=== PATIENT | female | born 1940 | race Caucasian/White ===

== ENCOUNTER 2017-01-10 11:13 | Observation (INO) ==
[2017-01-10] MEDS ORDERED: methylPREDNISolone 125 MG/2 ML VIAL IVP ONE (11:33)
[2017-01-10] MEDS ORDERED: Ipratropium/Albuterol Neb 3 ML IH ONE (11:33)
--- NOTE | 2017-01-10 11:44 | Emergency Department Note ---
Disposition Clinical Impression: Acute exacerbation of chronic obstructive airways disease Chest pain Qualifiers: Chest pain type: unspecified Qualified Code(s): R07.9 - Chest pain, unspecified Disposition: Admitted As Inpatient Condition: Fair Time of Disposition: 13:17 SOB HPI - General Chief Complaint: ED Shortness of Breath/Dyspnea Stated Complaint: SOB/hypertension Time Seen by Provider: 01/10/17 11:22 Source: patient, family Limitations: no limitations Nursing Notes Reviewed: Yes Vital Signs Reviewed: Yes - History of Present Illness 76-year-old female with history of hypertension, hyperlipidemia, [id number] smoking, possible COPD, presents with shortness of breath and elevated blood pressure. She states that her blood pressure is been about 190 systolic at home for the last week or so intermittently. She has also had anginal type chest pain with shortness of breath and chest pressure substernal 4 out of 10 that she currently has a gets worse when she is exerting herself. She states she is taking a baby aspirin daily. She has not had an ischemic and valvular heart or stress test in the last several years. She denies any history of CAD. She also reports a productive cough with some yellow sputum but denies fevers or chills. She has not been seen for a month or 2 and she has previously been evaluated by [facility] for hypertension she has a Coreg and losartan/ HCTZ. She denies dysuria hematuria, weight loss weight changes, nausea, vomiting, diarrhea, constipation, dysuria, hematuria, abdominal pain, skin changes. Pt Subjective Complaint: shortness of breath, cough, chest pain Onset (ago): day(s) Severity: moderate Consistency/Duration: intermittent Worsens with: exertion, movement, coughing Known history of: COPD Associated symptoms: Reports: chest pain, wheezing. Denies: cough Treatment prior to arrival: oxygen - Related Data Allergies Allergy/AdvReac Type Severity Reaction Status Date / Time sulfamethoxazole Allergy See Verified 01/10/17 11:35 [From Bactrim] Comments trimethoprim [From Bactrim] Allergy See Verified 01/10/17 11:35 Comments All systems ED: reviewed and negative except as stated. Constitutional: Denies: fever, chills Cardiovascular: Reports: as per HPI, chest pain, dyspnea on exertion. Denies: palpitations, edema Respiratory: Reports: as per HPI, cough, dyspnea, wheezes, sputum production Gastrointestinal: Denies: abdominal pain, nausea, vomiting Genitourinary: Denies: urgency, dysuria Integumentary: Denies: rash Neurological: Denies: headache, weakness Psychiatric: Denies: anxiety, depression Past Medical History - Past Medical History Attestation: Yes The following information was validated with the patient. Source: patient Medical history: Reports: COPD, GERD, hyperlipidemia, hypertension, thyroid disease Psychiatric history: Reports: anxiety, depression - Social History Smoking Status: Current every day smoker Alcohol use: Reports: none Drug use: Reports: none Physical Exam Constitutional: Elderly female in no acute distress appears stated age. HEENT: NCAT, sclera anicteric, PERRLA bilaterally, normal external ears bilaterally, nasal septum nondeviated, average dentition, MMM Neck: normal inspection, neck is supple, trachea midline Resp: Diffuse bilateral expiratory wheezes with prolonged expiratory phase. CV: RRR, no m/g/r GI: normal inspection, Soft, NTND, BS present Back: normal inspection, no tenderness to palpation Neuro: A&O3, no gross motor or sensory deficits bilaterally MSK: normal inspection, bilateral UE and LE with normal ROM Skin: No rashes, skin warm, dry, intact - General Limitations: no limitations General appearance: alert, in no apparent distress Course Course Narrative: 76-year-old female with shortness of breath, she does have bilateral extremity wheezes, or pulse ox is good she is mildly hypertensive however this is not severe 160 systolic, we will chest pain workup,with duonebs and solumedrol, troponin, her EKG initially looks within normal limits. Plan to the patient for chest pain workup given her heart score of 4, and concerning story for anginal symptoms. - Reevaluation(s) Reevaluation #1: Patient has some improvement however even though her pulse ox is normal, her lungs still sound diffusely wheezy, her troponin was negative and her EKG is unremarkable except for for some mild ST depressions in her lateral leads, will admit to medicine service, Dr. Santiago accepting Time: 13:17 Vital Signs Temperature 98.0 F 01/10/17 11:20 Pulse Rate 64 01/10/17 11:20 Respiratory Rate 20 01/10/17 11:20 Blood Pressure 169/83 01/10/17 11:20 O2 Sat by Pulse Oximetry 97 01/10/17 11:20 Temperature 98.2 F 01/10/17 14:08 Pulse Rate 67 01/10/17 14:08 Respiratory Rate 17 01/10/17 14:08 Blood Pressure 176/68 01/10/17 14:08 O2 Sat by Pulse Oximetry 93 01/10/17 14:08 Oxygen Delivery Oxygen Delivery Room Air Shortness of Breath/Dyspnea - Differential Diagnosis Likely: acute exacerbation of chronic obstructive airways disease, congestive heart failure - Medical Records Medical records reviewed: Yes I reviewed the patient's medical records. - Lab Data Lab results reviewed: Yes I reviewed the patient's lab results. Result diagrams: 01/10/17 12:06 01/10/17 12:06 Lab Results 01/10/17 01/10/17 01/10/17 Range/Units 12:06 12:06 12:06 WBC 7.7 (4.3-11.1) K/mcL RBC 4.45 (3.82-4.97) M/mcL Hgb 13.1 (11.5-15.4) g/dL Hct 39.9 (35.3-44.9) % MCV 89.7 (83.0-100.0) fL MCH 29.4 (28.0-33.3) pg MCHC 32.8 (31.6-35.5) g/dL RDW 12.2 (11.5-14.5) % Plt Count 181 (140-400) K/mcL MPV 10.3 (9.4-12.4) fL Immature Gran % 0.5 (0-4) % Seg Neutrophils % 72.7 % Lymphocytes % 16.4 % Monocytes % 7.0 % Eosinophils % 3.1 % Basophils % 0.3 % Neutrophils # 5.6 (1.6-8.9) K/mcL Lymphocytes # 1.3 (0.6-4.6) K/mcL Monocytes # 0.5 (0.0-1.3) K/mcL Eosinophils # 0.2 (0.0-0.6) K/mcL Basophils # 0.0 (0.0-0.2) K/mcL Nucleated RBCs/100 WBC 0.3 H (0) /100 WBC PT (9.4-12.1) Seconds INR Sodium 139 (136-145) mEq/L Potassium 3.8 (3.5-4.5) mEq/L Chloride 106 (98-109) mEq/L Carbon Dioxide 24 (19-29) mEq/L BUN 12 (7-20) mg/dL Creatinine 0.90 (0.57-1.11) mg/dL Est GFR ( Amer) > 60 (> 60) Est GFR (Non-Af Amer) > 60 (> 60) BUN/Creatinine Ratio 13 (6-26) Glucose 105 H (70-99) mg/dL Calculated Osmolality 288 (280-300) Lactic Acid 1.0 (0.5-2.2) mmol/L Calcium 9.1 (8.6-10.8) mg/dL Troponin I (0-0.03) ng/mL B-Natriuretic Peptide (0-100) pg/mL 01/10/17 01/10/17 01/10/17 Range/Units 12:06 12:06 12:06 WBC (4.3-11.1) K/mcL RBC (3.82-4.97) M/mcL Hgb (11.5-15.4) g/dL Hct (35.3-44.9) % MCV (83.0-100.0) fL MCH (28.0-33.3) pg MCHC (31.6-35.5) g/dL RDW (11.5-14.5) % Plt Count (140-400) K/mcL MPV (9.4-12.4) fL Immature Gran % (0-4) % Seg Neutrophils % % Lymphocytes % % Monocytes % % Eosinophils % % Basophils % % Neutrophils # (1.6-8.9) K/mcL Lymphocytes # (0.6-4.6) K/mcL Monocytes # (0.0-1.3) K/mcL Eosinophils # (0.0-0.6) K/mcL Basophils # (0.0-0.2) K/mcL Nucleated RBCs/100 WBC (0) /100 WBC PT 12.6 H (9.4-12.1) Seconds INR 1.2 Sodium (136-145) mEq/L Potassium (3.5-4.5) mEq/L Chloride (98-109) mEq/L Carbon Dioxide (19-29) mEq/L BUN (7-20) mg/dL Creatinine (0.57-1.11) mg/dL Est GFR ( Amer) (> 60) Est GFR (Non-Af Amer) (> 60) BUN/Creatinine Ratio (6-26) Glucose (70-99) mg/dL Calculated Osmolality (280-300) Lactic Acid (0.5-2.2) mmol/L Calcium (8.6-10.8) mg/dL Troponin I 0.00 (0-0.03) ng/mL B-Natriuretic Peptide 64 (0-100) pg/mL - Radiology Data Radiology results reviewed: Yes I reviewed the patient's radiology results. Chest X-Ray 01/10/17 11:34 IMPRESSION: No acute cardiopulmonary process. D/ / 01/10/2017 11:54:26 Shakir Judd MD / bcarter Interpreting Provider: Shakir uJdd MD - EKG Data EKG attestation: Yes I reviewed and interpreted this EKG. EKG shows normal: Reports: sinus rhythm (64 bpm VA 162 QRS [address] segment elevations or depressions,) Rate: Reports: normal Rhythm: Reports: NSR [place]/QRS: Reports: RBBB (Incomplete) ST segment depression in: Reports: v4, v5, v6 When compared to previous EKG there are: changes noted Interpretation: Reports: nonspecific ST-T wave changes (2009 compared with) - Core Measures AMI Core Measures Followed: Yes Attestation Statement - Attestation Attestation: I personally interviewed and examined this patient and my medical decision- making was reviewed with the ED Resident Physician, Dr. Steen I agree with the documented findings, disposition and treatment plan as described except to the extent set forth below. Patient is a 76-year-old female with history of hypertension hyperlipidemia and COPD who presents to the emergency room today with complaints of shortness of breath as well as chest pressure. Symptoms going on for the last few days intermittently and seem worse with exertion. Patient with no prior cardiac history and no recent cardiac evaluation. I agree with patient's physical exam findings as documented. Patient with subtle EKG findings T-wave flattening mild ST depression but not to the extent of 1 mm. This was compared to prior EKGs. Patient's workup up to this point is unremarkable and her blood pressure has been in the 140s systolic following breathing treatments. We will admit the patient for further evaluation of exertional dyspnea and chest pain. Case was discussed with the hospitalist and agreed to accept the patient for further evaluation and management. Patient remains hemodynamically stable at this time in the ED with no signs of respiratory distress.
[2017-01-10] MEDS ORDERED: Aspirin 81 MG TAB.CHEW PO ONE (11:45)
[2017-01-10 12:14] LABS: Basophils % 0.3 %; Eosinophils # 0.2 K/mcL (0.0-0.6); Eosinophils % 3.1 %; Hematocrit 39.9 % (35.3-44.9); Hemoglobin 13.1 g/dL (11.5-15.4); Immature Granulocytes % 0.5 % (0-4); Lymphocytes # 1.3 K/mcL (0.6-4.6); Lymphocytes % 16.4 %; Mean Corpuscular HGB Conc 32.8 g/dL (31.6-35.5); Mean Corpuscular Hemoglobin 29.4 pg (28.0-33.3); Mean Corpuscular Volume 89.7 fL (83.0-100.0); Mean Platelet Volume 10.3 fL (9.4-12.4); Monocytes # 0.5 K/mcL (0.0-1.3); Neutrophils # 5.6 K/mcL (1.6-8.9); Nucleated Red Blood Cells 0.3 /100 WBC (0); Platelet Count 181 K/mcL (140-400); Red Blood Count 4.45 M/mcL (3.82-4.97); Red Cell Distribution Width 12.2 % (11.5-14.5); Segmented Neutrophils % 72.7 %
[2017-01-10 12:27] LABS: BUN/Creatinine Ratio 13 (6-26); Blood Urea Nitrogen 12 mg/dL (7-20); Calcium 9.1 mg/dL (8.6-10.8); Carbon Dioxide 24 mEq/L (19-29); Chloride 106 mEq/L (98-109); Glucose 105 mg/dL (70-99); Osmolality,Calculated 288 (280-300); Potassium 3.8 mEq/L (3.5-4.5); Sodium 139 mEq/L (136-145); eGFR For African Americans > 60 (> 60); eGFR For Non-African Americans > 60 (> 60)
[2017-01-10 12:36] LABS: INR 1.2; Prothrombin Time 12.6 Seconds (9.4-12.1)
[2017-01-10] MEDS ORDERED: *HR* HYDROcodone/Acet 5/325 mg TABLET PO PRN (14:31)
[2017-01-10] MEDS ORDERED: Naloxone 0.4 MG/ML INJ IVP PRN (14:31)
[2017-01-10] MEDS ORDERED: Ondansetron 4 MG/2 ML VIAL IVP PRN (14:31)
[2017-01-10] MEDS ORDERED: *HR* Morphine 2 MG/ML SYRINGE IVP PRN (14:31)
[2017-01-10] MEDS ORDERED: Acetaminophen 325 MG TABLET PO PRN (14:31)
--- NOTE | 2017-01-10 15:03 | Internal Med History&Physical ---
<Jose MartinmaryrealTon liang - Last Filed: 01/10/17 15:58> Date of Encounter: 01/10/17 Time of Encounter: 14:00 Assessment and Plan (1) Acute exacerbation of chronic obstructive airways disease Current visit: Yes Status: Acute Patient presents with acute shortness of breath/dyspnea with exertion. Patient has history of COPD and tobacco use. Patient denies use of home oxygen. Supplemental O2 with titration if SPO2 less than 92% and continuous SPO2 monitoring, DuoNeb every 4, IVP prednisone 40 mg daily for SOB. (2) Chest pressure Current visit: Yes Status: Acute Mrs. Molina presents from the ED with chief complaint shortness of breath/ dyspnea and chest pressure with exertion. Patient states this began Wednesday night and has progressively worsened until today. States chest pressure is nonradiating and this is new onset for her. Troponins to be trended 2. EV echocardiogram ordered. Continuous cardiac telemetry and supplemental O2 with continuous SPO2 monitoring. We will consider nuclear pharm stress test based on results of echocardiogram. Nitroglycerin PRN. Continue patient's carvedilol and aspirin therapy. (3) HTN (hypertension) Current visit: Yes Status: Acute Patient presents with history of hypertension with increase in systolic BP to the 190s since Wednesday. Patient monitors BP at home. Continue patient's losartan/HCTZ. Will consider adding Lopressor if patient continues to show signs of uncontrolled hypertension. Monitor patient vital signs. Qualifiers: Hypertension type: essential hypertension Qualified Code(s): I10 - Essential (primary) hypertension (4) GERD (gastroesophageal reflux disease) Current visit: Yes Status: Chronic Patient presents with history of chronic gastroesophageal reflux disease. Will hold patient's Nexium and add IV Protonix 40 mg daily. Qualifiers: Esophagitis presence: esophagitis presence not specified Qualified Code(s) : K21.9 - Gastro-esophageal reflux disease without esophagitis (5) HLD (hyperlipidemia) Current visit: Yes Status: Chronic She presents with history of chronic hyperlipidemia. Lipid panel ordered. Will continue patient's Zocor. Qualifiers: Hyperlipidemia type: pure hypercholesterolemia Qualified Code(s): E78.00 - Pure hypercholesterolemia, unspecified; E78.0 - Pure hypercholesterolemia (6) DVT prophylaxis Current visit: Yes Status: Acute Patient placed on DVT prophylaxis due to admission protocol and current risk factors. Heparin 5,000 units SQ Q12 ordered. Monitor patient for signs of bleeding. Internal Medicine - H&P: HPI Chief complaint: SOB/Chest pressure w/exertion Admitted From: Emergency Dept Plans for Post Hospital Care: Home History of present illness: Mrs. Molina is a 76 year old female who presents from the ED with chief complaint shortness of breath/dyspnea and chest pressure with exertion. Patient states this began Wednesday night and has progressively worsened until today. She also states her BP on Wednesday night was in the 190s and continued up until when she presented to the ED. Mrs. Molina also states she has developed a cough over the past 3 days with yellow sputum production and runny nose. She denies any history of cardiac issues or coronary artery disease. Patient has a history of COPD, GERD, HLD, HTN, and thyroid disease. Patient states she is a current smoker smoking approximately 1-5 cigarettes per day. She denies recent illness, fever, chills, nausea, vomiting, abdominal pain, generalized weakness, diarrhea, constipation, weight loss, headache, vision changes, lower extremity/ pedal edema. Patient denies use of home oxygen. Patient is at moderate risk based on current respiratory status as well as new onset of chest pressure with exertion and will be placed as observation with troponins trended 2, EV echocardiogram, continuous cardiac telemetry, supplemental oxygen with titration if SPO2 less than 92%, DuoNeb's every 4, prednisone IV 40 mg daily. Will consider nuclear pharm stress test based on results of echocardiogram. Patient to be monitored closely for continued chest pressure and respiratory status. Time spent with patient greater than 40 minutes. Past Med Surg Social Fam HX - Past Medical History Source: patient Medical history: COPD, GERD, hyperlipidemia, hypertension, thyroid disease Psychiatric history: anxiety, depression - Past Surgical History Surgical History: cataract (Bilateral), cholecystectomy, hip replacement ( Bilateral), hysterectomy (Total), thyroidectomy - Social History Smoking Status: Current every day smoker Packs per day: 1-5 cigarettes per day Smokeless Tobacco Status: No Alcohol use: none Drug use: none Current living situation: Home, With Family Activity Level: Independent ambulation Recent Out of Country Travel Within the Last 8 Weeks: No Exposure or Possible Exposure to Illness During Travel: No - Family History Father Race: Family Member Ethnicity: Non- Living Status: Age at : 76 Cause of : MA Hx Family Cardiac Disorders: Yes (MA) Mother Race: Family Member Ethnicity: Non- Living Status: Age at : 80 Cause of : Complications of DM Hx Family Endocrine Disorder: Yes (DM) Brother Race: Family Member Ethnicity: Non- Living Status: Age at : 63 Cause of : Lung cancer Hx Family Cancer: Yes (Lung) Sister Race: Family Member Ethnicity: Non- Living Status: Still Living Hx Family Endocrine Disorder: Yes (DM) Internal Medicine - H&P: Meds Aspirin Enteric Coated [Aspirin EC] 81 mg PO DAILY 01/10/17 [History] Calcium Carbonate/Vitamin D3 [Calcium 600 + Vit D Tablet] 1 each PO DAILY [History] Carvedilol 12.5 mg PO QAM 01/10/17 [History] Carvedilol [Coreg] 25 mg PO QPM 01/10/17 [History] Esomeprazole Magnesium [Nexium] 40 mg PO DAILY 01/10/17 [History] FLUoxetine HCl [PROzac] 20 mg PO DAILY 01/10/17 [History] Levothyroxine Sodium 100 mcg PO QAM 01/10/17 [History] Losartan/HCTZ [Hyzaar 50-12.5 Tablet] 1 each PO DAILY 01/10/17 [History] Simvastatin [Zocor] 20 mg PO HS 01/10/17 [History] Umeclidinium [place] [Incruse Ellipta] 62.5 mcg IH DAILY 01/10/17 [History] Allergies sulfamethoxazole [From Bactrim] Allergy (Verified 01/10/17 11:35) See Comments lower extremity swelling trimethoprim [From Bactrim] Allergy (Verified 01/10/17 11:35) See Comments lower extremity swelling All Systems PM: A 10-system review of systems was performed and is negative for pertinent findings except as documented above in the HPI. - Constitutional Constitutional: no chills, no fever(s), no night sweats - EENT Eyes: no change in vision, no discharge, no pain, no photophobia Ears: no ear discharge, no ear pain, no tinnitus Nose, mouth and throat: no dysphagia, no nasal discharge, no neck pain, no sore throat - Breasts Breasts: as per HPI - Cardiovascular Cardiovascular ROS IM: as per HPI, chest pain (Patient reports as pressure, not typical chest pain. Non-radiating.), dyspnea on exertion, no diaphoresis, no dyspnea, no lightheadedness, no palpitations, no syncope - Respiratory Respiratory: as per HPI, cough, dyspnea on exertion, change in phlegm color - Gastrointestinal Gastrointestinal: no abdominal pain, no diarrhea, no hematemesis, no hematochezia, no melena, no nausea, no vomiting - Genitourinary Genitourinary: no change in urinary stream, no dysuria, no flank pain, no hematuria Menstruation: as per HPI, post hysterectomy - Musculoskeletal Musculoskeletal ROS IM: no numbness, no tingling - Integumentary Integumentary IM: no rash, no unusual bruising - Neurological Neurological ROS: no confusion, no convulsions, no focal weakness, no numbness, no tingling, no tremor(s) - Psychiatric Psychiatric: as per HPI, anxiety (Regarding health care status) - Endocrine Endocrine IM: as per HPI - Hematologic/Lymphatic Hematologic/Lymphatic: no easy bruising - Allergic/Immunologic Allergic/Immunologic: as per HPI - Constitutional Vitals: Temp Pulse Resp BP Pulse Ox 98.2 F 67 17 176/68 93 01/10/17 14:08 01/10/17 14:08 01/10/17 14:08 01/10/17 14:08 01/10/17 14:08 General appearance: Present: cooperative, A&O X 3, pleasant, no acute distress, obese, answers questions appropriately - Head Head exam: Present: atraumatic, normocephalic - Eye Eye exam: Present: PERRL, conjuntiva pink, sclera anicteric Pupils: Present: PERRL - ENT ENT exam: Present: normal exam, normal external ear exam - Neck Neck exam general surgery: Present: supple, trachea midline. Absent: lymphadenopathy - Respiratory Respiratory exam: Present: CTAB, wheezes (Expiratory wheezes bilaterally in all lobes). Absent: accessory muscle use, rales, rhonchi - Cardiovascular Cardiovascular exam: Present: RRR, +S1, +S2. Absent: diastolic murmur, gallop, rubs, systolic murmur - GI/Abdominal GI/Abdominal exam: Present: normal bowel sounds, soft, no peritoneal signs. Absent: distended, tenderness - Rectal Rectal exam: Present: deferred - Additional comments: exam deferred. - Extremities Exam Extremities exam: Present: warm, radial pulses palpable and symetrical. Absent : calf tenderness, cyanotic, pedal edema - Back Exam Back exam: Present: normal inspection - Neurological Exam Neurological exam: Present: CN II-XII intact, oriented X3, no focal deficits. Absent: pronater drift, facial droop, speech deficit - Psychiatric Psychiatric exam: Present: normal affect, normal mood - Skin Skin exam: Present: dry, intact Internal Med - H&P Results - Labs CBC & Chem 7: 01/10/17 12:06 01/10/17 12:06 - EKG Data EKG shows normal: sinus rhythm - EKG Data Prior EKG available for review: yes When compared to previous EKG: there is no significant change EKG comments: 01/10/17 15:55 EKG dated 10/13/08 shows sinus rhythm with anterior T-wave changes that are nonspecific. EKG dated 01/10/17 shows sinus rhythm with incomplete right bundle branch block and minimal ST depression. - Diagnostic Studies Chest x-ray Additional comments: Impressions Chest X-Ray 01/10/17 11:34 IMPRESSION: No acute cardiopulmonary process. D/ / 01/10/2017 11:54:26 Shakir Judd MD / ramila Interpreting Provider: Shakir Judd MD <Sr Pamelaumarely - Last Filed: 01/10/17 17:27> Date of Encounter: 01/10/17 Time of Encounter: 14:30 Internal Medicine - H&P: HPI History of present illness: Ms. Molina is a 76 year old female All Systems PM: A 10-system review of systems was performed and is negative for pertinent findings except as documented above in the HPI. - Constitutional Vitals: Temp Pulse Resp BP Pulse Ox 98.2 F 67 16 176/68 92 01/10/17 14:08 01/10/17 14:08 01/10/17 15:22 01/10/17 15:22 01/10/17 15:22 Internal Med - H&P Results - Labs CBC & Chem 7: 01/10/17 12:06 01/10/17 12:06 - Attending Attestation I examined this patient and my medical decision-making was reviewed with the nurse practitioner. I agree with the documented history of present illness, review of systems, past medical, surgical social and family histories and examination findings, disposition and treatment plan as described above except to any changes set forth below. 76-year-old female patient with history of COPD presented to the ER with complaints of shortness of breath and chest pressure that has been ongoing intermittently since Wednesday. She describes central chest pressure and 4 out of 10 in severity that gets worse with exertion. She has been having some productive cough with yellow sputum without any fevers or chills. On examination, she has end expiratory wheezing with normal S1 and S2. No pedal edema. No chest wall tenderness. Precordial chest pain: Monitor with telemetry. Trend troponins. We will get 2- D echocardiogram. Considers cardiac stress test if abnormal echo. Acute COPD exacerbation: Patient appears to be in acute COPD exacerbation with wheezing. Will treat for COPD with steroids, bronchodilators and antibiotics. Essential hypertension: Uncontrolled. Patient's blood pressure was elevated on presentation. We will resume home medications and monitor blood pressure closely. Adjust antihypertensive regimen accordingly. GERD: Continue PPI. DVT prophylaxis
[2017-01-10] MEDS ORDERED: Nitroglycerin 0.4 MG TAB.SUBL SL PRN (15:15)
[2017-01-10] MEDS: Ipratropium/Albuterol Neb 3 ML IH SCH ×3 (15:22→23:21)
[2017-01-10] MEDS: *HR* Heparin 5,000 UNIT/ML VIAL SQ SCH (17:08)
[2017-01-10] MEDS: Levofloxacin 500 MG/100 ML 500 MG/100 ML BAG IVPB SCH (18:04)
[2017-01-11 00:37] LABS: Basophils % 0.1 %; Hematocrit 38.2 % (35.3-44.9); Hemoglobin 12.7 g/dL (11.5-15.4); Immature Granulocytes % 0.5 % (0-4); Immature Platelets 5.2 % (1.1-6.1); Lymphocytes # 0.9 K/mcL (0.6-4.6); Lymphocytes % 10.5 %; Mean Corpuscular HGB Conc 33.2 g/dL (31.6-35.5); Mean Corpuscular Hemoglobin 29.7 pg (28.0-33.3); Mean Corpuscular Volume 89.5 fL (83.0-100.0); Mean Platelet Volume 10.7 fL (9.4-12.4); Monocytes # 0.1 K/mcL (0.0-1.3); Monocytes % 0.6 %; Neutrophils # 7.3 K/mcL (1.6-8.9); Platelet Count 195 K/mcL (140-400); Red Blood Count 4.27 M/mcL (3.82-4.97); Red Cell Distribution Width 12.3 % (11.5-14.5); Segmented Neutrophils % 88.3 %
[2017-01-11 00:52] LABS: Calcium 8.9 mg/dL (8.6-10.8); Chol/HDL Ratio 2.8 (0-4.9); Potassium 3.8 mEq/L (3.5-4.5)
[2017-01-11] MEDS: Ipratropium/Albuterol Neb 3 ML IH SCH ×6 (03:58→23:09)
[2017-01-11] MEDS: *HR* Heparin 5,000 UNIT/ML VIAL SQ SCH ×2 (05:34→17:22)
[2017-01-11] MEDS: Pantoprazole 40 MG VIAL IVP SCH (07:35)
[2017-01-11] MEDS ORDERED: MethylPREDNISolone 40 MG/ML VIAL IVP SCH (09:00)
[2017-01-11] MEDS ORDERED: Perflutren Lipid Microsphere 1.3 ML in 0.9 % Sodium Chloride 8.7 ML IVP ONE (10:40)
[2017-01-11] MEDS: Losartan/HCTZ 50-12.5 TABLET PO SCH (13:28)
[2017-01-11] MEDS: Aspirin Enteric Coated 81 MG Tablet PO SCH (13:28)
[2017-01-11] MEDS: FLUoxetine 20 MG CAPSULE PO SCH (13:29)
--- NOTE | 2017-01-11 13:34 | Electrocardiograph Report ---
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
[2017-01-11] MEDS ORDERED: Ipratropium/Albuterol Neb 3 ML IH PRN (13:47)
--- NOTE | 2017-01-11 13:52 | Internal Med Progress Note ---
Date of Encounter: 01/11/17 Time of Encounter: 13:05 - Assessment and plan (1) Acute exacerbation of chronic obstructive airways disease Current Visit: Yes Status: Acute Assessment and plan: Respiratory status improved will continue IV steroids today and start Prednisone 40mg PO qd in am Bronchodilator support O2 supplementation as needed smoking cessation counseling provided. patient states she quit last wednesday and is not planning on smoking again. refused nicotine replacement therapy (2) Chest pressure Current Visit: Yes Status: Acute Assessment and plan: Resolved at this time Likely secondary to COPD exacerbation serial TNI negative and echo findings noted. Ruled out ACS continue home meds (BB, Aspirin, statin) (3) DVT prophylaxis Current Visit: Yes Status: Acute Assessment and plan: heparin sq (4) HLD (hyperlipidemia) Current Visit: Yes Status: Chronic Assessment and plan: continue statin Qualifiers: Hyperlipidemia type: pure hypercholesterolemia Qualified Code(s): E78.00 - Pure hypercholesterolemia, unspecified; E78.0 - Pure hypercholesterolemia (5) HTN (hypertension) Current Visit: Yes Status: Acute Assessment and plan: Noted to be hypertensive this morning will resume all home meds and closely monitor BP if remains hypertensive, will use Hydralazine 10mg IV q6h prn SBP>150 Qualifiers: Hypertension type: essential hypertension Qualified Code(s): I10 - Essential (primary) hypertension - Subjective Interval history: Patient seen and examined at bedside. Resting in chair and reports of feeling significantly better since yesterday. States she came to the hospital due to chest pressure with difficulty breathing, both of which have resolved at this time. Denies any headache, chest pain, sob at this time. Noted to be hypertensive because she has not received her home medications. reports of having her last cigarette on Wednesday and is ready to quit at this time. Serial TNI negative, echo findings report LVEF of 60-65% with normal LV chamber size and function, mild concentric LVH and mild LV diastolic dysfunction reported. Given resolution of chest pain and negative serial TNI, no further cardiac work up is necessary. Will observe overnight and monitor BP closely. If remains clinically stable, likely d/c in am. - Constitutional Vitals: Temp Pulse Resp BP Pulse Ox 97.6 F 73 17 179/89 100 01/11/17 11:35 01/11/17 11:35 01/11/17 11:35 01/11/17 11:35 01/11/17 11:35 General appearance: Present: cooperative, A&O X 3, pleasant, no acute distress, obese, answers questions appropriately - Head Head exam: Present: atraumatic, normocephalic - Eye Eye exam: Present: conjuntiva pink, sclera anicteric - Respiratory Respiratory exam: Present: wheezes (bilateral expiratory wheezing ). Absent: respiratory distress - Cardiovascular Cardiovascular exam: Present: RRR, +S1, +S2 - GI/Abdominal GI/Abdominal exam: Present: normal bowel sounds, soft. Absent: distended, tenderness - Extremities Exam Extremities exam: Present: warm, radial pulses palpable and symetrical. Absent : calf tenderness, cyanotic, pedal edema - Neurological Exam Neurological exam: Present: alert, oriented X3 - Psychiatric Psychiatric exam: Present: normal affect, normal mood Internal Medicine: Result - Labs CBC & Chem 7: 01/11/17 00:13 01/11/17 00:13 Labs: Short CBC 01/11/17 Range/Units 00:13 WBC 8.3 (4.3-11.1) K/mcL Hgb 12.7 (11.5-15.4) g/dL Hct 38.2 (35.3-44.9) % Plt Count 195 (140-400) K/mcL Neutrophils # 7.3 (1.6-8.9) K/mcL BMP 01/11/17 00:13 Sodium 137 Potassium 3.8 Chloride 104 Carbon Dioxide 24 BUN 18 Creatinine 1.12 H Glucose 192 H Calcium 8.9 Cardiac Enzymes 01/10/17 01/11/17 Range/Units 18:45 00:13 Troponin I 0.00 0.01 (0-0.03) ng/mL - ABG Interpretation ABG results: PT/INR, D-dimer PT 12.6 Seconds (9.4-12.1) H 01/10/17 12:06 Consult Discharge Plan - Plan Referrals: Ling Gomez [Other] - 01/20/17 1:30 pm
[2017-01-12] MEDS: Ipratropium/Albuterol Neb 3 ML IH SCH ×6 (03:56→23:18)
[2017-01-12] MEDS: *HR* Heparin 5,000 UNIT/ML VIAL SQ SCH ×2 (06:20→17:40)
[2017-01-12 08:00] LABS: BUN/Creatinine Ratio 22 (6-26); Blood Urea Nitrogen 24 mg/dL (7-20); Calcium 8.8 mg/dL (8.6-10.8); Carbon Dioxide 27 mEq/L (19-29); Chloride 106 mEq/L (98-109); Glucose 113 mg/dL (70-99); Magnesium 1.5 mg/dL (1.6-2.6); Osmolality,Calculated 295 (280-300); Phosphorous 3.7 mg/dL (2.3-4.7); Potassium 3.9 mEq/L (3.5-4.5); Sodium 140 mEq/L (136-145); eGFR For African Americans > 60 (> 60); eGFR For Non-African Americans 50 (> 60)
[2017-01-12] MEDS: Losartan/HCTZ 50-12.5 TABLET PO SCH (08:24)
[2017-01-12] MEDS: Pantoprazole 40 MG VIAL IVP SCH (08:24)
[2017-01-12] MEDS: Aspirin Enteric Coated 81 MG Tablet PO SCH (08:24)
[2017-01-12] MEDS: FLUoxetine 20 MG CAPSULE PO SCH (08:24)
[2017-01-12] MEDS: predniSONE 20 MG TABLET PO SCH (08:25)
[2017-01-12 09:04] LABS: Basophils % 0.1 %; Hemoglobin 12.4 g/dL (11.5-15.4); Immature Granulocytes % 0.6 % (0-4); Lymphocytes # 1.5 K/mcL (0.6-4.6); Lymphocytes % 8.8 %; Mean Corpuscular HGB Conc 32.6 g/dL (31.6-35.5); Mean Corpuscular Hemoglobin 29.5 pg (28.0-33.3); Mean Corpuscular Volume 90.3 fL (83.0-100.0); Mean Platelet Volume 10.7 fL (9.4-12.4); Monocytes # 0.9 K/mcL (0.0-1.3); Monocytes % 5.3 %; Platelet Count 189 K/mcL (140-400); Red Blood Count 4.21 M/mcL (3.82-4.97); Red Cell Distribution Width 12.4 % (11.5-14.5); Segmented Neutrophils % 85.2 %
[2017-01-12 09:16] LABS: Neutrophils # 14.1 K/mcL (1.6-8.9)
--- NOTE | 2017-01-12 15:26 | Internal Med Progress Note ---
Date of Encounter: 01/12/17 Time of Encounter: 15:24 - Assessment and plan (1) Acute exacerbation of chronic obstructive airways disease Current Visit: Yes Status: Acute Assessment and plan: Respiratory status improved continue oral Prednisone 40mg PO qd Bronchodilator support O2 supplementation as needed smoking cessation counseling provided. patient states she quit last wednesday and is not planning on smoking again. refused nicotine replacement therapy. no pnuemonia on darline CXR (2) HLD (hyperlipidemia) Current Visit: Yes Status: Chronic Assessment and plan: continue statin Qualifiers: Hyperlipidemia type: pure hypercholesterolemia Qualified Code(s): E78.00 - Pure hypercholesterolemia, unspecified; E78.0 - Pure hypercholesterolemia (3) HTN (hypertension) Current Visit: Yes Status: Acute Assessment and plan: monitor BP Hydralazine 10mg IV q6h prn SBP>150 Qualifiers: Hypertension type: essential hypertension Qualified Code(s): I10 - Essential (primary) hypertension - Subjective Interval history: Patient seen at the bedside, reports feeling much better, was getting breathing treatment by the bedside. Denies any chest pain, mild wheezing on exam. Steroid has been tapered to oral. - Constitutional Vitals: Temp Pulse Resp BP Pulse Ox 97.9 F 66 16 134/69 98 01/12/17 10:55 01/12/17 10:55 01/12/17 11:12 01/12/17 10:55 01/12/17 11:12 General appearance: Present: cooperative, A&O X 3, pleasant, no acute distress, obese, answers questions appropriately Exam: - Head Head exam: Present: atraumatic, normocephalic - Eye Eye exam: Present: conjuntiva pink, sclera anicteric - Respiratory Respiratory exam: Present: wheezes (bilateral expiratory wheezing ). Absent: respiratory distress - Cardiovascular Cardiovascular exam: Present: RRR, +S1, +S2 - GI/Abdominal GI/Abdominal exam: Present: normal bowel sounds, soft. Absent: distended, tenderness - Extremities Exam Extremities exam: Present: warm, radial pulses palpable and symetrical. Absent : calf tenderness, cyanotic, pedal edema - Neurological Exam Neurological exam: Present: alert, oriented X3 - Psychiatric Psychiatric exam: Present: normal affect, normal mood Internal Medicine: Result - Labs CBC & Chem 7: 01/12/17 07:36 01/12/17 07:36 Labs: Short CBC 01/12/17 Range/Units 07:36 WBC 16.5 H D (4.3-11.1) K/mcL Hgb 12.4 (11.5-15.4) g/dL Hct 38.0 (35.3-44.9) % Plt Count 189 (140-400) K/mcL Neutrophils # 14.1 H (1.6-8.9) K/mcL BMP 01/12/17 07:36 Sodium 140 Potassium 3.9 Chloride 106 Carbon Dioxide 27 BUN 24 H Creatinine 1.07 Glucose 113 H Calcium 8.8 - ABG Interpretation ABG results: PT/INR, D-dimer PT 12.6 Seconds (9.4-12.1) H 01/10/17 12:06 Consult Discharge Plan - Plan Referrals: Ling Gomez [Other] - 01/20/17 1:30 pm
[2017-01-12] MEDS: Levofloxacin 500 MG/100 ML 500 MG/100 ML BAG IVPB SCH (17:41)
[2017-01-13] MEDS: Ipratropium/Albuterol Neb 3 ML IH SCH ×3 (03:34→11:00)
[2017-01-13] MEDS: *HR* Heparin 5,000 UNIT/ML VIAL SQ SCH (05:28)
[2017-01-13] MEDS: Pantoprazole 40 MG VIAL IVP SCH (09:59)
[2017-01-13] MEDS: predniSONE 20 MG TABLET PO SCH (09:59)
[2017-01-13] MEDS: Losartan/HCTZ 50-12.5 TABLET PO SCH (09:59)
[2017-01-13] MEDS: Aspirin Enteric Coated 81 MG Tablet PO SCH (09:59)
[2017-01-13] MEDS: FLUoxetine 20 MG CAPSULE PO SCH (09:59)
[2017-01-13 11:25] VITALS: BP 125/69
--- NOTE | 2017-01-13 12:11 | Discharge Summary ---
Date of Encounter: 01/13/17 Time of Encounter: 12:09 - Discharge Diagnosis (1) Acute exacerbation of chronic obstructive airways disease Priority: Primary Status: Acute (2) HLD (hyperlipidemia) Priority: Secondary Status: Chronic Qualifiers: Hyperlipidemia type: pure hypercholesterolemia Qualified Code(s): E78.00 - Pure hypercholesterolemia, unspecified; E78.0 - Pure hypercholesterolemia (3) HTN (hypertension) Priority: Secondary Status: Acute Qualifiers: Hypertension type: essential hypertension Qualified Code(s): I10 - Essential (primary) hypertension - Discharge Medications Prescriptions: predniSONE [PredniSONE] See Taper PO DAILY #35 tablet Home Medications: Aspirin Enteric Coated [Aspirin EC] 81 mg PO DAILY 01/10/17 [History] Calcium Carbonate/Vitamin D3 [Calcium 600 + Vit D Tablet] 1 each PO DAILY [History] Carvedilol 12.5 mg PO QAM 01/10/17 [History] Carvedilol [Coreg] 25 mg PO QPM 01/10/17 [History] Esomeprazole Magnesium [Nexium] 40 mg PO DAILY 01/10/17 [History] FLUoxetine HCl [Prozac] 20 mg PO DAILY 01/10/17 [History] Levothyroxine Sodium 100 mcg PO QAM 01/10/17 [History] Losartan/HCTZ [Hyzaar 50-12.5 Tablet] 1 each PO DAILY 01/10/17 [History] Simvastatin [Zocor] 20 mg PO HS 01/10/17 [History] Umeclidinium [place] [Incruse Ellipta] 62.5 mcg IH DAILY 01/10/17 [History] predniSONE [PredniSONE] See Taper PO DAILY #35 tablet 01/13/17 [Rx] Allergies/Adverse Reactions: Allergies sulfamethoxazole [From Bactrim] Allergy (Verified 01/10/17 11:35) See Comments lower extremity swelling trimethoprim [From Bactrim] Allergy (Verified 01/10/17 11:35) See Comments lower extremity swelling Procedures/tests Complete & Pending: Procedures Performed prior 72 hours Category Date Time Status EV echocardiogram w enhance Stat Y 01/11/17 14:42 Completed Date of admission: 01/10/17 13:16 Primary care physician: Ling Gomez CNP Discharging clinician: Valentín Cloud Anticipated date of discharge: 01/13/17 - Patient Status Disposition: Home, Self-Care Condition: Fair Functional capacity at discharge: independent ambulation Overall status at discharge: patient is back to baseline - Discharge Instructions Instructions: Chronic Obstructive Pulmonary Disease (DC) Follow Up With: iLng Gomez [Other] - 01/20/17 1:30 pm - Diet and Activity Activity: resume usual activities as tolerated Diet: advance to your usual diet Interval History: Mrs. Molina is a 76 year old female who presents from the ED with chief complaint shortness of breath/dyspnea and chest pressure with exertion. Patient has a history of COPD, GERD, HLD, HTN, and thyroid disease. Patient states she is a current smoker smoking approximately 1-5 cigarettes per day. Patient has history of COPD and tobacco use. Patient denies use of home oxygen. balaji was admitted for acute exacrebation of COPD. was tretaed with IV steroids, IV antibiotics and breathing treatments she did better overnight with above treatment, did not qualify for o2 at dc. she is being dc in stable condition with tapering dose of oral steroids Hospital course: Ms. Molina is a 76 year old female - Time Spent with Patient Total time spent providing and/or coordinating discharge services: - Constitutional Vitals: Temp Pulse Resp BP Pulse Ox 97.9 F 65 17 125/69 96 01/13/17 11:22 01/13/17 11:22 01/13/17 11:22 01/13/17 11:22 01/13/17 11:22 General appearance: Present: cooperative, A&O X 3, pleasant, no acute distress, obese, answers questions appropriately Exam: - Head Head exam: Present: atraumatic, normocephalic - Eye Eye exam: Present: PERRL, conjuntiva pink, sclera anicteric Pupils: Present: PERRL - ENT ENT exam: Present: normal exam, normal external ear exam - Neck Neck exam general surgery: Present: supple, trachea midline. Absent: lymphadenopathy - Respiratory Respiratory exam: Present: b/ l clear Absent: accessory muscle use, rales, rhonchi - Cardiovascular Cardiovascular exam: Present: RRR, +S1, +S2. Absent: diastolic murmur, gallop, rubs, systolic murmur - GI/Abdominal GI/Abdominal exam: Present: normal bowel sounds, soft, no peritoneal signs. Absent: distended, tenderness - Extremities Exam Extremities exam: Present: warm, radial pulses palpable and symetrical. Absent : calf tenderness, cyanotic, pedal edema - Back Exam Back exam: Present: normal inspection - Neurological Exam Neurological exam: Present: CN II-XII intact, oriented X3, no focal deficits. Absent: pronater drift, facial droop, speech deficit - Psychiatric Psychiatric exam: Present: normal affect, normal mood - Skin Skin exam: Present: dry, intact
== END 2017-01-13 13:18 | disposition home or self-care (01) ==
LOC: EMEROO 11:13 → 3BNU 11:13 → SUATTDRO 13:16 → 3BNU 14:02
PROVIDERS: ADMIT Internal Medicine; ATTEND Internal Medicine

== ENCOUNTER 2017-02-17 09:48 | Observation (INO) ==
[2017-02-17] MEDS ORDERED: Ipratropium/Albuterol Neb 3 ML IH ONE (10:39)
[2017-02-17] MEDS ORDERED: methylPREDNISolone 125 MG/2 ML VIAL IVP ONE (10:39)
--- NOTE | 2017-02-17 10:46 | Emergency Department Note ---
Disposition Clinical Impression: COPD with exacerbation, Acute exacerbation of chronic obstructive airways disease, Chest pressure Chest pain Qualifiers: Chest pain type: unspecified Qualified Code(s): R07.9 - Chest pain, unspecified Disposition: Admitted As Inpatient Time of Disposition: 12:17 General Adult HPI - General Chief complaint: ED Shortness of Breath/Dyspnea Stated complaint: SOLOMON Time Seen by Provider: 02/17/17 10:05 Source: patient, family Mode of arrival: ambulatory Limitations: no limitations Nursing Notes Reviewed: Yes Vital Signs Reviewed: Yes - History of Present Illness HPI Narrative: Ms. Molina is a 76 yo female with PMHx of HLD, HTN, GERD, and COPD. She presents today with a 4 day history of gradually worsening SOB. She has used her at-home breathing treatments which have provided moderate relief. She also has a 2 day history of diarrhea which has resulted in some at home blood pressure measurements in the 90's systolic, which corrected with increasing her PO intake of fluids. Yesterday she was able to eat a meal which alleviated her shortness of breath. Today, she has had some diarrhea, but has been drinking fluids with no problem. She denies any nausea or vomitting. She has no abdominal discomfort other than diarrhea. She denies any headaches, dizziness, lightheadedness, or fever. She is having some chest pain and discomfort. She describes the pain as "pressure" and "burning," it is mild in quality, and radiates upwards to her neck. She has had this intermittently over the past 4 days. Patient's last breathing treatment was this morning. She did not feel any relief, so she called her doctor. She decided to come to the ED despite her PCP saying she would see her this afternoon. Pain Scale: 3 - Related Data Home Medications Medication Instructions Recorded Confirmed Aspirin Enteric Coated [Aspirin EC] 81 mg PO DAILY 01/10/17 02/17/17 Calcium Carbonate/Vitamin D3 1 each PO DAILY 01/10/17 02/17/17 [Calcium 600 + Vit D Tablet] Carvedilol [Coreg] 25 mg PO BID 01/10/17 02/17/17 Esomeprazole Magnesium [Nexium] 40 mg PO DAILY 01/10/17 02/17/17 FLUoxetine HCl [Prozac] 20 mg PO DAILY 01/10/17 02/17/17 Levothyroxine Sodium 100 mcg PO QAM 01/10/17 02/17/17 Losartan/HCTZ [Hyzaar 50-12.5 1 each PO DAILY 01/10/17 02/17/17 Tablet] Simvastatin [Zocor] 20 mg PO HS 01/10/17 02/17/17 Umeclidinium [place] [Incruse 62.5 mcg IH DAILY 01/10/17 02/17/17 Ellipta] Albuterol Sulfate [Ventolin Hfa] 2 puff IH Q4H PRN 02/17/17 02/17/17 Famotidine [Pepcid] 20 mg PO DAILY 02/17/17 02/17/17 Allergies Allergy/AdvReac Type Severity Reaction Status Date / Time sulfamethoxazole Allergy See Verified 02/17/17 11:42 [From Bactrim] Comments trimethoprim [From Bactrim] Allergy See Verified 02/17/17 11:42 Comments All systems ED: reviewed and negative except as stated. Constitutional: Denies: fever, weakness Cardiovascular: Reports: chest pain, dyspnea on exertion. Denies: palpitations , syncope Respiratory: Reports: cough, dyspnea, sputum production. Denies: hemoptysis Gastrointestinal: Reports: diarrhea. Denies: abdominal pain, nausea, vomiting Genitourinary: Reports: dysuria Musculoskeletal: Denies: joint swelling Neurological: Denies: headache, weakness, numbness, abnormal gait Endocrine: Denies: fatigue, heat or cold intolerance Past Medical History - Past Medical History Medical history: Reports: COPD, GERD, hyperlipidemia, hypertension, thyroid disease Surgical history: Reports: cataract (Bilateral), cholecystectomy, hip replacement (Bilateral), hysterectomy (Total), thyroidectomy Psychiatric history: Reports: anxiety, depression - Social History Smoking Status: Current some day smoker Smokeless Tobacco Status: No Alcohol use: Reports: none Drug use: Reports: none Physical Exam - General Limitations: no limitations General appearance: alert, in no apparent distress - Head Head exam: atraumatic, normocephalic - Eye Eye exam: Present: normal appearance, EOMI, conjunctival injection. Absent: scleral icterus - ENT ENT exam: normal exam, mucous membranes moist - Neck Neck exam: Present: normal inspection - Chest Chest inspection: Present: normal inspection. Absent: symmetric chest wall rise - Respiratory Respiratory exam: Present: wheezes. Absent: respiratory distress - Cardiovascular Cardiovascular exam: Present: normal heart sounds. Absent: rubs, gallop - Expanded Cardiovascular Exam Peripheral pulses: 0: radial (R), 2+: carotid (R) (No carotid upstroke), carotid (L) (No carotid upstroke), radial (L), dorsalis pedis (R), dorsalis pedis (L) - Abdominal Exam Abdominal exam: Present: soft, Non-Tender, normal bowel sounds. Absent: distention, guarding - Expanded Lower Extremity Exam Lower leg exam: Present: normal inspection. Absent: swelling - Neurological Exam Neurological exam: Present: oriented X3 Course Course Narrative: Pt is a 76 yo female with PMHx COPD, GERD, HTN, and HLD. Patient is being treated for COPD exacerbation. She was seen last week for shortness of breath. An echo was performed which showed no abnormal functioning. Patient's last stress test was at [facility] 5 years ago for which she said was normal. Patient is experiencing some pressure in her chest with radiation up her neck. Will give SL nitro and ASA in addtion to 2 breathing treatments. - Reevaluation(s) Reevaluation #1: Patient chest pain alleviated by SL nitroglycerin, although it made patient feel weak with a transient drop in blood pressure to 106/61. Patient was seen last week for shortness of breath. She has not been getting adequate relief with her controller and rescue medications. Will admit to medicine service for chest pain work up and rule out ACS. Vital Signs Temperature 98.1 F 02/17/17 09:55 Pulse Rate 72 02/17/17 09:55 Respiratory Rate 22 02/17/17 09:55 Blood Pressure 119/79 02/17/17 09:55 O2 Sat by Pulse Oximetry 100 02/17/17 09:55 Temperature 98.1 F 02/17/17 09:55 Pulse Rate 72 02/17/17 12:00 Respiratory Rate 18 02/17/17 12:00 Blood Pressure 142/80 02/17/17 12:00 O2 Sat by Pulse Oximetry 99 02/17/17 12:00 Oxygen Delivery Oxygen Delivery Room Air Medical Decision Making - [facility] Narrative Medical decision making narrative: Ms. Molina is a 76 yo female with PMHx COPD, GERD, HTN, and HLD with shortness of breath for 4 days to be admitted to medicine for ACS rule out/Chest pain/ COPD exacerbation. She was just admitted last week for a COPD exacerbation. Her ECG stable from last week, troponins are negative, and labs WNL. Patient received two breathing treatments in the ED which opened her airways. However, patient's chest pain relieved with nitroglycerin tablet. Bc her last stress testing was 5 years ago, she needs to be admitted for further ACS work up. - Medical Records Medical records reviewed: Yes I reviewed the patient's medical records. - Lab Data Lab results reviewed: Yes I reviewed the patient's lab results. Result diagrams: 02/17/17 10:54 02/17/17 10:54 Lab Results 02/17/17 02/17/17 02/17/17 Range/Units 10:54 10:54 10:54 WBC 8.0 (4.3-11.1) K/mcL RBC 4.65 (3.82-4.97) M/mcL Hgb 13.7 (11.5-15.4) g/dL Hct 42.1 (35.3-44.9) % MCV 90.5 (83.0-100.0) fL MCH 29.5 (28.0-33.3) pg MCHC 32.5 (31.6-35.5) g/dL RDW 12.7 (11.5-14.5) % Plt Count 175 (140-400) K/mcL MPV 10.2 (9.4-12.4) fL Immature Gran % 0.4 (0-4) % Seg Neutrophils % 75.1 % Lymphocytes % 13.1 % Monocytes % 9.3 % Eosinophils % 1.9 % Basophils % 0.2 % Neutrophils # 6.0 (1.6-8.9) K/mcL Lymphocytes # 1.1 (0.6-4.6) K/mcL Monocytes # 0.8 (0.0-1.3) K/mcL Eosinophils # 0.2 (0.0-0.6) K/mcL Basophils # 0.0 (0.0-0.2) K/mcL Sodium 140 (136-145) mEq/L Potassium 3.9 (3.5-4.5) mEq/L Chloride 106 (98-109) mEq/L Carbon Dioxide 26 (19-29) mEq/L BUN 18 (7-20) mg/dL Creatinine 1.01 (0.57-1.11) mg/dL Est GFR ( Amer) > 60 (> 60) Est GFR (Non-Af Amer) 53 L (> 60) BUN/Creatinine Ratio 18 (6-26) Glucose 104 H (70-99) mg/dL Calculated Osmolality 292 (280-300) Calcium 9.0 (8.6-10.8) mg/dL Troponin I 0.00 (0-0.03) ng/mL B-Natriuretic Peptide (0-100) pg/mL 02/17/17 Range/Units 10:54 WBC (4.3-11.1) K/mcL RBC (3.82-4.97) M/mcL Hgb (11.5-15.4) g/dL Hct (35.3-44.9) % MCV (83.0-100.0) fL MCH (28.0-33.3) pg MCHC (31.6-35.5) g/dL RDW (11.5-14.5) % Plt Count (140-400) K/mcL MPV (9.4-12.4) fL Immature Gran % (0-4) % Seg Neutrophils % % Lymphocytes % % Monocytes % % Eosinophils % % Basophils % % Neutrophils # (1.6-8.9) K/mcL Lymphocytes # (0.6-4.6) K/mcL Monocytes # (0.0-1.3) K/mcL Eosinophils # (0.0-0.6) K/mcL Basophils # (0.0-0.2) K/mcL Sodium (136-145) mEq/L Potassium (3.5-4.5) mEq/L Chloride (98-109) mEq/L Carbon Dioxide (19-29) mEq/L BUN (7-20) mg/dL Creatinine (0.57-1.11) mg/dL Est GFR ( Amer) (> 60) Est GFR (Non-Af Amer) (> 60) BUN/Creatinine Ratio (6-26) Glucose (70-99) mg/dL Calculated Osmolality (280-300) Calcium (8.6-10.8) mg/dL Troponin I (0-0.03) ng/mL B-Natriuretic Peptide 14 (0-100) pg/mL - Radiology Data Radiology results reviewed: Yes I reviewed the patient's radiology results. Chest X-Ray 02/17/17 10:39 IMPRESSION: 1. No acute cardiopulmonary disease. D/ / Keri Aaron MD / Keri Aaron MD Interpreting Provider: Keri Aaron MD - EKG Data EKG #1 EKG attestation: Yes I reviewed and interpreted this EKG. EKG results narrative: Patients EKG at 1006 02-17-17 unchanged from EKG on 01-10-2017. EKG shows rate of 72 BPM and and regular sinus rhythm, incomplete right bundle branch block. Attestation Statement - Attestation Attestation: I personally interviewed and examined this patient and my medical decision- making was reviewed with the Resident Physician, Dr. Sauer. I agree with the documented findings, disposition and treatment plan as described except to the extent set forth below. Patient is a 76-year-old white female with history of COPD, hypertension, hyperlipidemia, who presents to the emergency department with a four-day history of gradually worsening shortness of breath, wheezing, and chest tightness. Patient reports no fevers or chills, no preceding upper respiratory infection, no abdominal pain or back pain. Patient has been using her inhalers at home with no relief. Patient states the pain she has been experiencing she describes as a tightness or heaviness in her chest that radiates up into her left neck and jaw. Patient was given an aspirin in route. She also received nitroglycerin which seemed to make the pain better but caused her to be hypotensive and "feel bad". He should with coarse sounding cough at bedside with nonproductive and audible wheezing. I agree patient's physical exam findings as documented. Received aerosols and steroids on arrival was placed on teletypesetter monitor and continuous pulse ox as well as supplemental oxygen. Patient with improvement following aerosols. Patient still feeling mild vague chest tightness. EKG is unremarkable for any acute ischemic changes. Patient had lab evaluation and chest x-ray. Patient's labs including troponin were within normal limits and her chest x-ray was clear without infiltrates or consolidations. At this time we recommended admission for further evaluation of her mild COPD exacerbation as well as her chest pain. Patient has not had a chest pain evaluation in the past or any significant heart testing by stress test or heart catheterization. Patient agrees with this plan. Case was discussed with the hospitalist and except for admission for further evaluation and management. Patient remains hemodynamically stable in the emergency department and improved respiratory status following aerosols and steroids and remains on supplemental O2.
[2017-02-17] MEDS ORDERED: Aspirin 81 MG TAB.CHEW PO STA (10:52)
[2017-02-17] MEDS ORDERED: Nitroglycerin 0.4 MG TAB.SUBL SL PRN (10:54)
[2017-02-17 11:00] LABS: Basophils % 0.2 %; Eosinophils # 0.2 K/mcL (0.0-0.6); Eosinophils % 1.9 %; Hematocrit 42.1 % (35.3-44.9); Hemoglobin 13.7 g/dL (11.5-15.4); Immature Granulocytes % 0.4 % (0-4); Lymphocytes # 1.1 K/mcL (0.6-4.6); Lymphocytes % 13.1 %; Mean Corpuscular HGB Conc 32.5 g/dL (31.6-35.5); Mean Corpuscular Hemoglobin 29.5 pg (28.0-33.3); Mean Corpuscular Volume 90.5 fL (83.0-100.0); Mean Platelet Volume 10.2 fL (9.4-12.4); Monocytes # 0.8 K/mcL (0.0-1.3); Monocytes % 9.3 %; Platelet Count 175 K/mcL (140-400); Red Blood Count 4.65 M/mcL (3.82-4.97); Red Cell Distribution Width 12.7 % (11.5-14.5); Segmented Neutrophils % 75.1 %
[2017-02-17 11:12] LABS: BUN/Creatinine Ratio 18 (6-26); Blood Urea Nitrogen 18 mg/dL (7-20); Carbon Dioxide 26 mEq/L (19-29); Chloride 106 mEq/L (98-109); Glucose 104 mg/dL (70-99); Osmolality,Calculated 292 (280-300); Potassium 3.9 mEq/L (3.5-4.5); Sodium 140 mEq/L (136-145); eGFR For African Americans > 60 (> 60); eGFR For Non-African Americans 53 (> 60)
--- NOTE | 2017-02-17 12:02 | Event Note ---
Date of Encounter: 02/17/17 Time of Encounter: 12:01 1. Acute mild COPD exacerbation likely secondary to viral bronchitis Start prednisone 60 mg daily, continue duo nebs and oxygen as needed 2. Chest pain Aspirin, check a lipid panel Telemetry, follow troponins, schedule stress test in the morning 3. Tobacco, smoking cessation counseling, nicotine patch 4. Hypertension, stable, may use hydralazine as needed 5. Chronic kidney disease stage III, stable Omeprazole for GI prophylaxis and Lovenox for DVT prophylaxis. The patient will be admitted for observation. Full code. Time spent on this admission 40 minutes. H&P will be completed by MAXIM[facility] Dixon
[2017-02-17] MEDS ORDERED: Naloxone 0.4 MG/ML INJ IVP PRN (12:08)
[2017-02-17] MEDS ORDERED: Acetaminophen 325 MG TABLET PO PRN (12:08)
--- NOTE | 2017-02-17 12:23 | Internal Med History&Physical ---
<Dixon,Juana J - Last Filed: 02/17/17 12:19> Date of Encounter: 02/17/17 Time of Encounter: 12:19 Assessment and Plan (1) Acute exacerbation of chronic obstructive airways disease Current visit: Yes Status: Acute Presented with worsening SOB for four days prior to presentation. Recently admitted with the same symptoms and treated with ATB and steroids. Suspect mild exacerbation, afebrile no elevated WBC. Hold ATB. Prednisone started, will likely need longer taper with recurrent symptoms. Cont nebs 02 prn. (2) Chest pressure Current visit: Yes Status: Acute Started on morning of presentation. Symptoms improved in the ED. Took ASA prior to arrival and received in the ED. Initial troponin negative and EKG without acute st changes. Cycle troponin stress test. Consult cardiology if needed. Continue home ASA, BB, statin. (3) Loose stools Current visit: Yes Status: Acute Patient reports multiple loose stools for 2-3 days prior to presentation. Recently on ATB for COPD exacerbation. Afebrile, no elevated WBC, ABD exam benign. GI panel pending. (4) HTN (hypertension) Current visit: No Status: Acute Per hx. BP variable but controlled in the ED. Continue home BP meds. Monitor BP and titrate PRN. Qualifiers: Hypertension type: essential hypertension Qualified Code(s): I10 - Essential (primary) hypertension (5) Hypothyroid Current visit: Yes Status: Acute Per hx. Continue home synthroid Qualifiers: Hypothyroidism type: unspecified Qualified Code(s): E03.9 - Hypothyroidism , unspecified (6) DVT prophylaxis Current visit: No Status: Acute [facility] Internal Medicine - H&P: HPI Chief complaint: SOB, CHEST PAIN Admitted From: Home Plans for Post Hospital Care: Home History of present illness: Ms. Molina is a 76 year old female WITH PMH, HTN, COPD, and Hypothyroidism who presented to [facility] on 02-17-17 with c/o of shortness of breath and midsternal chest pain. Was placed in observation status for PCS r/o. Information obtained from chart review and report. Per patient she awoke this morning with shortness of breath and upper midsternal chest pain what was unrelieved with rest. Chest pain described as a pressure and radiated towards neck. Nothing made pain better or worse. Reports intermittent SOB for the past four day without cough. Also reports multiple episodes of loose stool for the past few days. SOB better on exam, denies chest pain. Past Med Surg Social Fam HX - Past Medical History Medical history: COPD, GERD, hyperlipidemia, hypertension, thyroid disease Psychiatric history: anxiety, depression - Past Surgical History Surgical History: cataract (Bilateral), cholecystectomy, hip replacement ( Bilateral), hysterectomy (Total), thyroidectomy - Social History Smoking Status: Current some day smoker Smokeless Tobacco Status: No Alcohol use: none Drug use: none - Family History Father Family Member Ethnicity: Non- Living Status: Hx Family Cardiac Disorders: Yes (IA) Mother Family Member Ethnicity: Non- Living Status: Hx Family Endocrine Disorder: Yes (DM) Brother Family Member Ethnicity: Non- Living Status: Hx Family Cancer: Yes (Lung) Sister Family Member Ethnicity: Non- Living Status: Still Living Hx Family Endocrine Disorder: Yes (DM) Internal Medicine - H&P: Meds Aspirin Enteric Coated [Aspirin EC] 81 mg PO DAILY 01/10/17 [History] Calcium Carbonate/Vitamin D3 [Calcium 600 + Vit D Tablet] 1 each PO DAILY [History] Carvedilol [Coreg] 25 mg PO BID 01/10/17 [History] Esomeprazole Magnesium [Nexium] 40 mg PO DAILY 01/10/17 [History] FLUoxetine HCl [Prozac] 20 mg PO DAILY 01/10/17 [History] Levothyroxine Sodium 100 mcg PO QAM 01/10/17 [History] Losartan/HCTZ [Hyzaar 50-12.5 Tablet] 1 each PO DAILY 01/10/17 [History] Simvastatin [Zocor] 20 mg PO HS 01/10/17 [History] Umeclidinium [place] [Incruse Ellipta] 62.5 mcg IH DAILY 01/10/17 [History] Albuterol Sulfate [Ventolin Hfa] 2 puff IH Q4H PRN 02/17/17 [History] Famotidine [Pepcid] 20 mg PO DAILY 02/17/17 [History] Allergies sulfamethoxazole [From Bactrim] Allergy (Verified 02/17/17 11:42) See Comments lower extremity swelling trimethoprim [From Bactrim] Allergy (Verified 02/17/17 11:42) See Comments lower extremity swelling All Systems PM: A 10-system review of systems was performed and is negative for pertinent findings except as documented above in the HPI. - Constitutional Constitutional: no chills, no fever(s), no night sweats - EENT Eyes: no change in vision, no discharge, no pain, no photophobia Ears: no ear discharge, no ear pain, no tinnitus Nose, mouth and throat: no dysphagia, no nasal discharge, no neck pain, no sore throat - Cardiovascular Cardiovascular ROS IM: chest pain, dyspnea, no diaphoresis, no lightheadedness, no palpitations, no syncope - Respiratory Respiratory: dyspnea on exertion, no cough, no dyspnea, no wheezing, no excessive phlegm production - Gastrointestinal Gastrointestinal: loose stools, no abdominal pain, no diarrhea, no hematemesis, no hematochezia, no melena, no nausea, no vomiting - Genitourinary Genitourinary: no change in urinary stream, no dysuria, no flank pain, no hematuria - Musculoskeletal Musculoskeletal ROS IM: no numbness, no tingling - Integumentary Integumentary IM: no rash, no unusual bruising - Neurological Neurological ROS: no confusion, no convulsions, no focal weakness, no numbness, no tingling, no tremor(s) - Hematologic/Lymphatic Hematologic/Lymphatic: no easy bruising - Constitutional Vitals: Temp Pulse Resp BP Pulse Ox 98.1 F 72 18 142/80 99 02/17/17 09:55 02/17/17 12:00 02/17/17 12:00 02/17/17 12:00 02/17/17 12:00 General appearance: Present: A&O X 3, no acute distress - Head Head exam: Present: atraumatic, normocephalic - Eye Eye exam: Present: PERRL, conjuntiva pink, sclera anicteric Pupils: Present: PERRL - Neck Neck exam general surgery: Present: supple, trachea midline. Absent: lymphadenopathy - Respiratory Respiratory exam: Present: CTAB, rhonchi. Absent: accessory muscle use, rales, wheezes - Cardiovascular Cardiovascular exam: Present: RRR, +S1, +S2. Absent: diastolic murmur, gallop, rubs, systolic murmur - GI/Abdominal GI/Abdominal exam: Present: normal bowel sounds, soft, no peritoneal signs. Absent: distended, tenderness - Extremities Exam Extremities exam: Present: warm, radial pulses palpable and symetrical. Absent : calf tenderness, cyanotic, pedal edema - Neurological Exam Neurological exam: Present: CN II-XII intact, oriented X3, no focal deficits. Absent: pronater drift, facial droop, speech deficit - Skin Skin exam: Present: dry, intact Internal Med - H&P Results - Labs CBC & Chem 7: 02/17/17 10:54 02/17/17 10:54 Labs: Short CBC 02/17/17 Range/Units 10:54 WBC 8.0 (4.3-11.1) K/mcL Hgb 13.7 (11.5-15.4) g/dL Hct 42.1 (35.3-44.9) % Plt Count 175 (140-400) K/mcL Neutrophils # 6.0 (1.6-8.9) K/mcL BMP 02/17/17 10:54 Sodium 140 Potassium 3.9 Chloride 106 Carbon Dioxide 26 BUN 18 Creatinine 1.01 Glucose 104 H Calcium 9.0 Cardiac Enzymes 02/17/17 Range/Units 10:54 Troponin I 0.00 (0-0.03) ng/mL - EKG Data -: EKG Interpreted by Myself EKG shows normal: sinus rhythm Rate: normal - EKG Data Prior EKG available for review: yes When compared to previous EKG: there is no significant change EKG comments: 02/17/17 12:[address] changes. - Impressions ITS Impressions Chest X-Ray 02/17/17 10:39 IMPRESSION: 1. No acute cardiopulmonary disease. D/ / Keri Aaron MD / Keri Aaron MD Interpreting Provider: Keri Aaron MD <Mohan Henley H - Last Filed: 02/17/17 12:42> Date of Encounter: 02/17/17 Internal Medicine - H&P: HPI History of present illness: Ms. Molina is a 76 year old female All Systems PM: A 10-system review of systems was performed and is negative for pertinent findings except as documented above in the HPI. - Constitutional Vitals: Temp Pulse Resp BP Pulse Ox 98.1 F 72 16 132/84 99 02/17/17 09:55 02/17/17 12:00 02/17/17 12:32 02/17/17 12:32 02/17/17 12:00 Internal Med - H&P Results - Labs CBC & Chem 7: 02/17/17 10:54 02/17/17 10:54 Labs: Short CBC 02/17/17 Range/Units 10:54 WBC 8.0 (4.3-11.1) K/mcL Hgb 13.7 (11.5-15.4) g/dL Hct 42.1 (35.3-44.9) % Plt Count 175 (140-400) K/mcL Neutrophils # 6.0 (1.6-8.9) K/mcL BMP 02/17/17 10:54 Sodium 140 Potassium 3.9 Chloride 106 Carbon Dioxide 26 BUN 18 Creatinine 1.01 Glucose 104 H Calcium 9.0 Cardiac Enzymes 02/17/17 Range/Units 10:54 Troponin I 0.00 (0-0.03) ng/mL - Impressions ITS Impressions Chest X-Ray 02/17/17 10:39 IMPRESSION: 1. No acute cardiopulmonary disease. D/ / Keri Aaron MD / Keri Aaron MD Interpreting Provider: Keri Aaron MD - Attending Attestation 1. Acute mild COPD exacerbation likely secondary to viral bronchitis (Not oxygen dependent) Start prednisone 60 mg daily, continue duo nebs and oxygen as needed 2. Chest pain Aspirin, check a lipid panel Telemetry, follow troponins, schedule stress test in the morning 3. Tobacco, smoking cessation counseling, nicotine patch 4. Hypertension, stable, may use hydralazine as needed 5. Chronic kidney disease stage III, stable Omeprazole for GI prophylaxis and Lovenox for DVT prophylaxis. The patient will be admitted for observation. Full code. Time spent on this admission 40 minutes. For this encounter, I have reviewed the TOOL AND EQUIPMENT RENTAL CLERK or PA documentation, treatment plan, and medical decision making; and I have had face to face time with this patient.
[2017-02-17] MEDS: Ipratropium/Albuterol Neb 3 ML IH SCH ×4 (15:47→23:01)
--- NOTE | 2017-02-17 22:55 | Electrocardiograph Report ---
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
[2017-02-18] MEDS: Mag Hydrox/Al Hydrox/Simeth 30 ML UDC PO PRN ×3 (02:58→16:23)
[2017-02-18] MEDS: Ipratropium/Albuterol Neb 3 ML IH SCH ×6 (03:50→23:08)
[2017-02-18 05:37] LABS: Basophils % 0.1 %; Hematocrit 40.5 % (35.3-44.9); Hemoglobin 13.4 g/dL (11.5-15.4); Immature Granulocytes % 0.5 % (0-4); Lymphocytes # 0.8 K/mcL (0.6-4.6); Lymphocytes % 4.9 %; Mean Corpuscular HGB Conc 33.1 g/dL (31.6-35.5); Mean Corpuscular Hemoglobin 29.6 pg (28.0-33.3); Mean Corpuscular Volume 89.6 fL (83.0-100.0); Mean Platelet Volume 10.6 fL (9.4-12.4); Neutrophils # 14.6 K/mcL (1.6-8.9); Platelet Count 197 K/mcL (140-400); Red Blood Count 4.52 M/mcL (3.82-4.97); Red Cell Distribution Width 12.6 % (11.5-14.5); Segmented Neutrophils % 88.5 %
[2017-02-18] MEDS: *HR* Enoxaparin 40 MG/0.4 ML SYRINGE SQ SCH (05:52)
[2017-02-18 06:02] LABS: Albumin 3.1 g/dL (3.5-5.0); Albumin/Globulin Ratio 0.8 (1.1-2.2); Bilirubin,Total 0.3 mg/dL (0.2-1.2); Calcium 8.9 mg/dL (8.6-10.8); Globulin 3.7 g/dL (2.4-3.5); Potassium 3.8 mEq/L (3.5-4.5); Total Protein 6.8 g/dL (6.0-8.3)
[2017-02-18] MEDS ORDERED: Regadenoson 0.4 MG/5 ML SYRINGE IVP ONE (07:03)
[2017-02-18] MEDS: Aspirin Enteric Coated 81 MG Tablet PO SCH (09:08)
[2017-02-18] MEDS: Losartan/HCTZ 50-12.5 TABLET PO SCH (09:13)
[2017-02-18] MEDS: FLUoxetine 20 MG CAPSULE PO SCH (09:13)
[2017-02-18] MEDS: predniSONE 20 MG TABLET PO SCH (09:13)
--- NOTE | 2017-02-18 10:54 | Nuclear Medicine Stress Report ---
Regadenoson Nuclear Stress Name: Jacy Molina Date of Study: 02/18/2017 Date: 1940 Ht: 62.0 in Medical Record#: [id number] Age: 76 Wt: 144.0 lb Gender: Female Order #: [id number] Location: [facility] Room: [facility] Supervising Provider: Kamilla Castillo CNP Reading Physician: Trina Borrego DO Ordering Physician: Ronel Thomas CNP Primary Care Physician: Ling Gomez CNP Stress Technologist: Mildred Hale, [employer] Engineering Systems Analyst: Polo Morales Indications: Chest Pain Impression: Perfusion imaging was negative for ischemia or infarct. Pharmacologic ECG was negative for ischemia at the level of heart rate achieved. Patient described chest burning at the beginning of the study. Recommend clinical correlation. Gated EF = >70%. History: Hypertension Hypercholesteremia Stress Test Summary: Stress Test Type: Pharmacologic Regadenoson 0.4mg/5ml given IV Baseline Information: Initial Heart Rate: 90 Blood Pressure: 110/62 Stress Information: Test Terminated Due to (primary): As per protocol Maximum Blood Pressure: 108/62 Maximum Heart Rate: 112 Percent Maximum Heart Rate Achieved: 79 Double Product: [id number] METS Reached: 1 Symptoms: Nausea Nuclear Summary: SPECT myocardial perfusion imaging using Tc99m Sestamibi given intravenously was performed at rest and following cardiac stress testing. The resting images were obtained following initial dose of 11.7 mCi. Following stress an additional dose of 33.6 mCi was given at peak exercise or 30 seconds post regadenoson infusion. Medication Given: Time Medication Dose Units Route Findings: Stress Note * Resting ECG demonstrated normal sinus rhythm with possible RV conduction delay and diffuse nonspecific ST abnormalities. * No arrhythmias were noted during stress. * Patient described chest burning at the beginning of the study. * Pharmacologic stress ECG is non diagnostic for ischemia due to baseline non-specific ST and T changes. Hemodynamic responses * Normal hemodynamic responses to pharmacologic stress. Study Quality * Study quality is good. Gated EF > 70% * Gated EF > 70%. Left Ventricle * The left ventricle is not dilated. TID * No evidence of transient ischemic dilatation. Lung Uptake * There is no evidence of increase lung uptake. NORMALS * Normal wall motion. * Normal segmental perfusion in stress. * Normal Segmental Perfusion in rest. Updated by Trina Borrego on 02/18/2017 10:46:37 AM electronically signed on 02/18/2017 10:48:58 AM with status of Final
[2017-02-18] MEDS ORDERED: Mag Hydrox/Al Hydrox/Simeth 30 ML UDC PO ONE (16:23)
--- NOTE | 2017-02-18 19:02 | Internal Med Progress Note ---
Date of Encounter: 02/18/17 Time of Encounter: 14:30 - Assessment and plan (1) Acute exacerbation of chronic obstructive airways disease Current Visit: Yes Status: Acute Assessment and plan: Patient reports worsening shortness of breath for 4-5 days prior to arrival. She said that she was recently diagnosed about one month ago with COPD. She says that she was admitted recently and treated with antibiotics and steroid. Area of mild exacerbation at this time. Her lungs are clear anteriorly and posteriorly, there is no wheezing or rhonchi. She denies productive cough. She is afebrile and has no white count. Patient will continue her prednisone. Continue nebulizers and titrate oxygen as needed to maintain sats greater than 92%. Not requiring supplement oxygen at this time. (2) Chest pressure Current Visit: Yes Status: Acute Assessment and plan: Patient denies any chest pressure. She does report worsening GERD symptoms. She states that she was recently changed from Nexium to Pepcid and has had increasingly worsening symptoms since. Patient had nuclear stress test today that was negative for ischemia or infarct gated EF was greater than 70%. Patient described chest burning at the beginning of the study, I suspect that this is related to her GERD symptoms. Patient's troponins were negative. Her BNP is 14. Chest x-ray was negative for any acute cardiopulmonary disease. Echocardiogram was sinus rhythm with an incomplete right bundle branch block. Rate is 72, WI interval was 169 QRS is 93 , QTC 424. (3) GERD (gastroesophageal reflux disease) Current Visit: No Status: Chronic Assessment and plan: Patient reports increasing GERD symptoms since being changed from Nexium to Pepcid. She states her primary care physician told her that Medicare will no longer pay for Nexium. I gave her an omeprazole and Maalox earlier and she reports complete resolution of symptoms. I will send her home with omeprazole and she may take Maalox sparingly when necessary. Qualifiers: Esophagitis presence: esophagitis presence not specified Qualified Code(s) : K21.9 - Gastro-esophageal reflux disease without esophagitis (4) HLD (hyperlipidemia) Current Visit: No Status: Chronic Assessment and plan: Chronic. Continue Zocor. Qualifiers: Hyperlipidemia type: pure hypercholesterolemia Qualified Code(s): E78.00 - Pure hypercholesterolemia, unspecified; E78.0 - Pure hypercholesterolemia (5) HTN (hypertension) Current Visit: No Status: Acute Assessment and plan: Well-controlled in inpatient setting. Chronic. Continue home medications. Qualifiers: Hypertension type: essential hypertension Qualified Code(s): I10 - Essential (primary) hypertension (6) Hypothyroid Current Visit: Yes Status: Acute Assessment and plan: Chronic. Continue home medications. Qualifiers: Hypothyroidism type: unspecified Qualified Code(s): E03.9 - Hypothyroidism , unspecified (7) Loose stools Current Visit: Yes Status: Acute Assessment and plan: Patient reports that she was having loose stools prior to admission. She has had none since arrival. She actually had a formed stool. Lab states they will not do stool studies on formed stool. The order has been canceled. (8) DVT prophylaxis Current Visit: Yes Status: Acute Assessment and plan: Lovenox subcutaneous. - Time Spent With Patient less than 15 minutes - Subjective Interval history: Patient was seen and assessed at about 1430. She is alert and awake, oriented. She states that approximately one month ago she had a diagnosis of COPD. She says that she still smokes occasionally, 1-2 cigarettes every 2-3 days. She says that she has had increasing problems since changing from Nexium to Pepcid and her GERD symptoms have become worse. She is tender in the epigastric area. She denies chest pain, nausea, vomiting, diaphoresis. I am going to offer her Maalox and change Pepcid to omeprazole. Will reassess in the morning. Checked on pt, she states that pain is totally gone and would like to try Omeprazole for home. - Constitutional Vitals: Temp Pulse Resp BP Pulse Ox 98.0 F 71 16 117/70 94 02/18/17 18:36 02/18/17 18:36 02/18/17 18:36 02/18/17 18:36 02/18/17 18:36 General appearance: Present: A&O X 3, pleasant, no acute distress, answers questions appropriately - Head Head exam: Present: normal inspection - Eye Eye exam: Present: normal appearance, conjuntiva pink - ENT ENT exam: Present: mucous membranes moist, normal exam, normal external ear exam - Neck Neck exam general surgery: Present: normal inspection. Absent: lymphadenopathy , tenderness - Respiratory Respiratory exam: Present: CTAB. Absent: rales, respiratory distress, rhonchi, stridor, wheezes - Cardiovascular Cardiovascular exam: Present: RRR, +S1, +S2. Absent: diastolic murmur, systolic murmur - GI/Abdominal GI/Abdominal exam: Present: normal bowel sounds, soft. Absent: hepatomegaly, tenderness - Extremities Exam Extremities exam: Present: warm, radial pulses palpable and symetrical. Absent : pedal edema, tenderness - Neurological Exam Neurological exam: Present: alert, oriented X3, no focal deficits. Absent: pronater drift, facial droop, speech deficit - Skin Skin exam: Present: dry, intact, warm Internal Medicine: Result - Labs CBC & Chem 7: 02/18/17 05:06 02/18/17 05:06 Labs: Short CBC 02/18/17 Range/Units 05:06 WBC 16.5 H D (4.3-11.1) K/mcL Hgb 13.4 (11.5-15.4) g/dL Hct 40.5 (35.3-44.9) % Plt Count 197 (140-400) K/mcL Neutrophils # 14.6 H (1.6-8.9) K/mcL BMP 02/18/17 05:06 Sodium 140 Potassium 3.8 Chloride 104 Carbon Dioxide 29 BUN 24 H Creatinine 1.14 H Glucose 150 H Calcium 8.9 Cardiac Enzymes 02/17/17 Range/Units 23:17 Troponin I 0.00 (0-0.03) ng/mL Liver Function 02/18/17 Range/Units 05:06 Total Bilirubin 0.3 (0.2-1.2) mg/dL AST 18 (5-34) Units/L ALT 15 (0-55) Units/L Alkaline Phosphatase 120 (38-126) Units/L Albumin 3.1 L (3.5-5.0) g/dL Consult Discharge Plan - Plan Referrals: Ling Gomez CNP [Primary Care Provider] -
[2017-02-19] MEDS: Mag Hydrox/Al Hydrox/Simeth 30 ML UDC PO PRN ×2 (03:02→09:06)
[2017-02-19] MEDS: Ipratropium/Albuterol Neb 3 ML IH SCH ×4 (03:38→16:39)
[2017-02-19 05:07] LABS: Basophils % 0.2 %; Hematocrit 37.1 % (35.3-44.9); Hemoglobin 12.5 g/dL (11.5-15.4); Immature Granulocytes % 0.3 % (0-4); Lymphocytes % 8.7 %; Mean Corpuscular HGB Conc 33.7 g/dL (31.6-35.5); Mean Corpuscular Hemoglobin 30.4 pg (28.0-33.3); Mean Corpuscular Volume 90.3 fL (83.0-100.0); Mean Platelet Volume 11.1 fL (9.4-12.4); Monocytes # 0.9 K/mcL (0.0-1.3); Monocytes % 7.9 %; Neutrophils # 9.2 K/mcL (1.6-8.9); Platelet Count 177 K/mcL (140-400); Red Blood Count 4.11 M/mcL (3.82-4.97); Red Cell Distribution Width 12.6 % (11.5-14.5); Segmented Neutrophils % 82.9 %
[2017-02-19 05:28] LABS: BUN/Creatinine Ratio 29 (6-26); Blood Urea Nitrogen 28 mg/dL (7-20); Calcium 8.3 mg/dL (8.6-10.8); Carbon Dioxide 26 mEq/L (19-29); Chloride 104 mEq/L (98-109); Glucose 126 mg/dL (70-99); Osmolality,Calculated 295 (280-300); Potassium 3.4 mEq/L (3.5-4.5); Sodium 139 mEq/L (136-145); eGFR For African Americans > 60 (> 60); eGFR For Non-African Americans 57 (> 60)
[2017-02-19] MEDS: *HR* Enoxaparin 40 MG/0.4 ML SYRINGE SQ SCH (06:42)
[2017-02-19] MEDS ORDERED: Sucralfate 1 GM TABLET PO SCH (13:59)
[2017-02-19] MEDS: Losartan/HCTZ 50-12.5 TABLET PO SCH (14:48)
[2017-02-19] MEDS: predniSONE 20 MG TABLET PO SCH (14:48)
[2017-02-19] MEDS: FLUoxetine 20 MG CAPSULE PO SCH (14:48)
[2017-02-19] MEDS: Aspirin Enteric Coated 81 MG Tablet PO SCH (14:49)
[2017-02-19 15:34] VITALS: BP 110/67
--- NOTE | 2017-02-19 17:10 | Discharge Summary ---
Date of Encounter: 02/19/17 Time of Encounter: 13:35 - Discharge Diagnosis (1) Acute exacerbation of chronic obstructive airways disease Priority: Primary Status: Acute Comments: Mild exacerbation. Pt is not requiring supplemental 02 to maintain sats. Lungs are clear with faint wheezing heard in post bases only. Continue steroid taper at home. Continue breathing treatments and inhaters at home as scheduled. Chest X-Ray 02/17/17 10:39 IMPRESSION: 1. No acute cardiopulmonary disease. D/ / Keri Aaron MD / Keri Aaron MD Interpreting Provider: Keri Aaron MD (2) Chest pressure Priority: Secondary Status: Acute Comments: Pt states that she feels like GERD symptoms are causing the chest pain that she was experiencing. She reports a burning pian in her chest and it is completely, but temporarily resolved with Maalox or Carafate. Pt had been doing well until her medication was changed from Pepcid to another medication. She is taking Prilosec 20mg po bid while here and states that she is getting adequate relief. Will continue at home. We have also scheduled an appointment with GI for her. (3) GERD (gastroesophageal reflux disease) Priority: Secondary Status: Chronic Comments: Plan as above. Qualifiers: Esophagitis presence: esophagitis presence not specified Qualified Code(s) : K21.9 - Gastro-esophageal reflux disease without esophagitis (4) HLD (hyperlipidemia) Priority: Secondary Status: Chronic Comments: Chronic. continue Zocor at home. Qualifiers: Hyperlipidemia type: pure hypercholesterolemia Qualified Code(s): E78.00 - Pure hypercholesterolemia, unspecified; E78.0 - Pure hypercholesterolemia (5) HTN (hypertension) Priority: Secondary Status: Acute Comments: Chronic, well controlled in inpatient setting. Continue home medications. Qualifiers: Hypertension type: essential hypertension Qualified Code(s): I10 - Essential (primary) hypertension (6) Hypothyroid Priority: Secondary Status: Acute Comments: Continue Synthroid Qualifiers: Hypothyroidism type: unspecified Qualified Code(s): E03.9 - Hypothyroidism , unspecified (7) Loose stools Priority: Secondary Status: Acute Comments: Pt has had what she calls loose stools on arrival and then again today. They are formed, but soft. There is no siddharth bleeding per rectum and she denies liqud stool or diarrhea, cramping. (8) DVT prophylaxis Priority: Secondary Status: Acute Comments: SQ Lovenox. - Discharge Medications Prescriptions: Omeprazole [PriLOSEC] 20 mg PO BIDAC #60 cap predniSONE [PredniSONE] 10 mg PO DAILY #51 tablet Sucralfate [Carafate] 1 gm PO TID #90 tab Home Medications: Aspirin Enteric Coated [Aspirin EC] 81 mg PO DAILY 01/10/17 [History] Calcium Carbonate/Vitamin D3 [Calcium 600 + Vit D Tablet] 1 each PO DAILY [History] Carvedilol [Coreg] 25 mg PO BID 01/10/17 [History] FLUoxetine HCl [Prozac] 20 mg PO DAILY 01/10/17 [History] Levothyroxine Sodium 100 mcg PO QAM 01/10/17 [History] Losartan/HCTZ [Hyzaar 50-12.5 Tablet] 1 each PO DAILY 01/10/17 [History] Simvastatin [Zocor] 20 mg PO HS 01/10/17 [History] Umeclidinium [place] [Incruse Ellipta] 62.5 mcg IH DAILY 01/10/17 [History] Albuterol Sulfate [Ventolin Hfa] 2 puff IH Q4H PRN 02/17/17 [History] Mag Hydrox/Al Hydrox/Simeth [Maalox] 30 ml PO Q4H PRN 02/19/17 [Rx] Omeprazole [PriLOSEC] 20 mg PO BIDAC #60 cap 02/19/17 [Rx] Sucralfate [Carafate] 1 gm PO TID #90 tab 02/19/17 [Rx] predniSONE [PredniSONE] 10 mg PO DAILY #51 tablet 02/19/17 [Rx] Allergies/Adverse Reactions: Allergies sulfamethoxazole [From Bactrim] Allergy (Verified 02/17/17 11:42) See Comments lower extremity swelling trimethoprim [From Bactrim] Allergy (Verified 02/17/17 11:42) See Comments lower extremity swelling Date of admission: 02/17/17 12:19 Primary care physician: Ling Gomez CNP Discharging clinician: Ronel Thomas Anticipated date of discharge: 02/19/17 - Patient Status Disposition: Home, Self-Care Condition: Good Functional capacity at discharge: independent ambulation Overall status at discharge: patient is back to baseline - Discharge Instructions Follow Up With: Ling Gomez CNP [Primary Care Provider] - 03/03/17 10:30 am Tami Franco MD [Partnered Physician] - 02/24/17 3:00 pm ([address] in medical office building ) Additional Instructions: Follow up with Dr. Franco as scheduled. Follow up with your PCP within the next 7-10 days for a follow up visit. Start your new medications tomorrow morning. REturn to the ER as needed for any other problems or concerns. Remember to eat small, frequent meals, and to avoid spicy, fatty, or fried food. - Diet and Activity Activity: increase activity as tolerated Diet: advance to your usual diet Hospital course: Ms. Molina is a 76 year old female with history of HTN, recent diagnosis of COPD , and hypothyroidism, who presented to the ED on 02/17 with c/o shortness of breath and midsternal chest pain. Chest pain was mid-sternal with associated sob that was unrelieved with rest. There was radiation to the neck, but no nausea, vomiting, diaphoresis. She also reports several episodes of loose stool that were actually formed stools. There is no abd pain or tenderness, cramping, diarrhea, fevers, or bleeding. EKG sinus rhythm without ST changes. Chest xray negative. Stress test negative for ischemia or infarct, gated EF >70%. She described a burning chest pain prior to stress test that was relieved with Maalox. Troponins were negative. Pt states that she feels like GERD symptoms is what she is experiencing. she describes a burning feeling in her chest that is relieved with either Maalox or carafate. Onset after eating or taking medications. She was recently changed from Nexium, which controlled her symptoms, to Pepcid, that has not been controlling her symptoms because Medicare will no longer pay for the medication. I started her on Omeprazole 20mg po bid and Carafate 1000mg po tid. We have made an appointment with Dr. Franco for follow up. Pts labs and vital signs are stable and wNL. Currently pt is pain free. Pt is ready for discharge. - Time Spent with Patient Total time spent providing and/or coordinating discharge services: Less than 30 minutes - Constitutional Vitals: Temp Pulse Resp BP Pulse Ox 98.2 F 68 16 110/67 96 02/19/17 15:33 02/19/17 15:33 02/19/17 15:33 02/19/17 15:33 02/19/17 15:33 General appearance: Present: cooperative, A&O X 3, pleasant, no acute distress, answers questions appropriately - Head Head exam: Present: normal inspection - Eye Eye exam: Present: normal appearance, conjuntiva pink - ENT ENT exam: Present: mucous membranes moist, normal exam, normal external ear exam - Neck Neck exam general surgery: Present: normal inspection. Absent: lymphadenopathy , tenderness - Respiratory Respiratory exam: Present: CTAB. Absent: rales, respiratory distress, rhonchi, stridor, wheezes - Cardiovascular Cardiovascular exam: Present: RRR, +S1, +S2. Absent: clicks, gallop, systolic murmur - GI/Abdominal GI/Abdominal exam: Present: normal bowel sounds, soft. Absent: hepatomegaly, tenderness - Extremities Exam Extremities exam: Present: normal capillary refill, warm. Absent: pedal edema - Neurological Exam Neurological exam: Present: alert, oriented X3, no focal deficits. Absent: facial droop, speech deficit - Skin Skin exam: Present: dry, intact, warm. Absent: rash
== END 2017-02-19 18:05 | disposition home or self-care (01) ==
LOC: EMEROO 09:48 → 3BNU 09:48
PROVIDERS: ADMIT Internal Medicine; ATTEND Registered Nurse

== ENCOUNTER 2017-06-27 11:22 | Observation (INO) ==
[2017-06-27] MEDS ORDERED: Ipratropium/Albuterol Neb 3 ML IH ONE (11:55)
[2017-06-27] MEDS ORDERED: methylPREDNISolone 125 MG/2 ML VIAL IVP ONE (11:59)
[2017-06-27 12:15] LABS: Bilirubin,Urine Negative (Negative); Blood,Urine Negative (Negative); Clarity,Urine Clear (Clear); Color,Urine Yellow (Yellow); Glucose,Urine (UA) Normal (Normal); Ketones,Urine Negative (Negative); Leukocyte Esterase,Urine Small (Negative); Nitrite,Urine Negative (Negative); Protein,Urine Negative (Neg-Trace); Specific Gravity,Urine 1.011 (1.010-1.025); Urobilinogen,Urine Normal (Normal)
--- NOTE | 2017-06-27 12:15 | Emergency Department Note ---
Disposition Clinical Impression: Unstable angina pectoris, Atypical chest pain Disposition: Admitted As Inpatient Condition: Fair Time of Disposition: 15:07 SOB HPI - General Chief Complaint: ED Chest Pain Stated Complaint: SOLOMON Time Seen by Provider: 06/27/17 11:28 Source: patient Mode of arrival: ambulatory Limitations: no limitations Nursing Notes Reviewed: Yes Vital Signs Reviewed: Yes - History of Present Illness 76-year-old female presents him to department complaining of shortness of breath as well as a burning chest sensation. Said that she misses been going on for approximately 2 weeks. She was seen approximately one week ago here diagnosis COPD exacerbation and sent home on steroids. Patient does have history of COPD. She does have a CPAP machine as she is at night as well as a DuoNeb inhaler as well as a steroid inhaler. She says she has not been using his of this I make her feel bad and she feels dizzy. Patient otherwise says she has had no fevers, hemoptysis, swelling in her legs she has never had a pulmonary embolism or any other blood clots. She is not complaining of any real chest pain just a burning sensation in her sternum. Symptoms going on for a while. She is not complaining of any back pain, neck pain, headache, blurry vision, abdominal pain, pain with urination, change in bowel movements compared to the arms or legs or any generalized numbness. She has no nausea or vomiting. Patient has no other complaints. - Related Data Home Medications Medication Instructions Recorded Confirmed Aspirin Enteric Coated [Aspirin EC] 81 mg PO DAILY 01/10/17 06/27/17 Calcium Carbonate/Vitamin D3 1 tab PO DAILY 01/10/17 06/27/17 [Calcium 600 + Vit D Tablet] Carvedilol [Coreg] 50 mg PO BID 01/10/17 06/27/17 Levothyroxine Sodium 100 mcg PO QAM 01/10/17 06/27/17 Losartan/HCTZ [Hyzaar 50-12.5 1 tab PO BID 01/10/17 06/27/17 Tablet] Simvastatin [Zocor] 20 mg PO HS 01/10/17 06/27/17 Albuterol Sulfate [Ventolin Hfa] 2 puff IH Q4H PRN 02/17/17 06/27/17 Esomeprazole Magnesium [Nexium] 40 mg PO DAILY 06/27/17 06/27/17 Umeclidinium Brm/Vilanterol Tr 1 puff IH DAILY 06/27/17 06/27/17 [Anoro Ellipta 62.5-25 Mcg INH] clonazePAM [Klonopin] 0.5 mg PO DAILY PRN 06/27/17 06/27/17 Previous Rx's Medication Instructions Recorded Sucralfate [Carafate] 1 gm PO TID #90 tab 02/19/17 PredniSONE [Deltasone] 20 mg PO BID #10 tablet 06/20/17 Allergies Allergy/AdvReac Type Severity Reaction Status Date / Time sulfamethoxazole Allergy See Verified 06/27/17 11:27 [From Bactrim] Comments trimethoprim [From Bactrim] Allergy See Verified 06/27/17 11:27 Comments Review of Systems: 10 point review of systems done and negative unless otherwise stated in history of present illness. All systems ED: reviewed and negative except as stated. Review of Systems: As Per HPI Past Medical History - Past Medical History Attestation: Yes The following information was validated with the patient. Medical history: Reports: COPD, GERD, hyperlipidemia, hypertension, thyroid disease Surgical history: Reports: cataract, cholecystectomy, hip replacement, hysterectomy, thyroidectomy Psychiatric history: Reports: anxiety, depression - Social History Smoking Status: Former smoker Smokeless Tobacco Status: No Alcohol use: Reports: none Drug use: Reports: none Physical Exam - General Limitations: no limitations General appearance: alert, in no apparent distress - Head Head exam: atraumatic, normocephalic, normal inspection - Eye Eye exam: Present: normal appearance, PERRL, EOMI - ENT ENT exam: normal exam, normal oropharynx, mucous membranes moist - Neck Neck exam: Present: normal inspection, full ROM, trachea midline - Chest Chest inspection: Present: normal inspection, symmetric chest wall rise - Respiratory Respiratory exam: Present: wheezes (Mild wheezes in the bases bilaterally). Absent: respiratory distress, accessory muscle use, prolonged expiratory phase - Cardiovascular Cardiovascular exam: Present: regular rate, normal rhythm, normal heart sounds - Abdominal Exam Abdominal exam: Present: soft, Non-Tender. Absent: tenderness, distention, guarding, rebound, rigidity - Extremities Exam Extremities exam: Present: normal inspection, full ROM. Absent: tenderness, pedal edema - Back Exam Back exam: Present: normal inspection, full ROM. Absent: tenderness, CVA tenderness (R), CVA tenderness (L) - Neurological Exam Neurological exam: Present: alert, oriented X3 - Skin Skin exam: Present: warm, dry, intact, normal color Course Course Narrative: 76-year-old female presenting to the [facility] department with history of COPD for difficulty in breathing. She did take prednisone she said which did help but she was not taken any of her inhaling treatments including DuoNeb is an inhaled steroids. She was seen here recently worked up or she did have a CT of her chest for pulmonary embolism done which was negative. She was sent home for COPD exacerbation. Patient here is not hypoxic. We will get basic labs including CBC, BMP, troponin, EKG, we will give her triple DuoNeb treatment as well as getting a chest x-ray. We will also get a d-dimer. Patient is okay with this plan. Disposition pending results. - Reevaluation(s) Reevaluation #1: Patient reevaluated and still having the chest pain. Her breathing is much better after the albuterol treatments. At this time I think this is more anginal equivalent. We are going to give her aspirin as well as nitroglycerin. Patient's d-dimer did come back positive and elevated so we did order a CT angios of the chest. Those results are pending at this time. Once the CTA comes back in if she does not have pulmonary embolism we will admit for unstable angina. She has not had a heart cardiac catheter did have a stress test done a few years ago. Which is negative. Time: 14:25 Vital Signs Temperature 97.9 F 06/27/17 11:25 Pulse Rate 66 06/27/17 11:25 Respiratory Rate 22 06/27/17 11:25 Blood Pressure 168/80 06/27/17 11:25 O2 Sat by Pulse Oximetry 99 06/27/17 11:25 Temperature 97.7 F 06/27/17 16:39 Pulse Rate 62 06/27/17 16:39 Respiratory Rate 16 06/27/17 16:39 Blood Pressure 161/70 06/27/17 16:39 O2 Sat by Pulse Oximetry 97 06/27/17 16:39 Oxygen Delivery Oxygen Delivery Room Air Shortness of Breath/Dyspnea - MDM Narrative Medical decision making narrative: 76-year-old female presents to the ED complaining of shortness of breath. After talking to her more she also is having chest pain. Patient has had a stress test done in the past whenever her heart catheterization. She has never had any cardiac problems. Said the chest pain started all of a sudden and is also exertional for the past couple weeks. We did give her nitroglycerin as well as aspirin here the nitroglycerin did slightly help with her pain. We first are within condition is more COPD exacerbation so she was given Solu- Medrol as well as DuoNeb did help with her breathing. Chest x-ray was normal showing no acute abnormalities. Her labs were also normal. She did have a normal troponin as well. EKG did have some new changes where she had flipped T waves in leads V1 through V3. This is comparison with an EKG that was done 1 week ago. Spoke with the hospitalist as this patient most likely need to be admitted because of his new onset chest pain and EKG changes. Patient also had an elevated d-dimer so we did give CT anterior her chest that showed no pulmonary embolism. Patient was also okay with this plan. Spoke with Dr. Apple who agreed to accept the patient to their service. Patient is admitted in stable condition. Chest X-Ray 06/27/17 11:52 IMPRESSION: No evidence for acute cardiopulmonary process. Stable cardiomegaly. D/ / Armando Sesay MD / Armando Sesay MD Interpreting Provider: Armando Sesay MD Chest CTA 06/27/17 13:26 IMPRESSION: No evidence of pulmonary embolism or acute pulmonary abnormality. Atherosclerosis to include coronary artery disease. Stable mild cardiomegaly. Mild emphysema. D/ / 06/27/2017 14:25:43 Armando Sesay MD / donna Interpreting Provider: Armando Sesay MD - Medical Records Medical records reviewed: Yes I reviewed the patient's medical records. - Lab Data Lab results reviewed: Yes I reviewed the patient's lab results. Result diagrams: 06/27/17 12:22 06/27/17 12:22 Lab Results 06/27/17 06/27/17 06/27/17 Range/Units 12:08 12:22 12:22 WBC 10.1 (4.3-11.1) K/mcL RBC 4.45 (3.82-4.97) M/mcL Hgb 13.1 (11.5-15.4) g/dL Hct 38.6 (35.3-44.9) % MCV 86.7 (83.0-100.0) fL MCH 29.4 (28.0-33.3) pg MCHC 33.9 (31.6-35.5) g/dL RDW 12.3 (11.5-14.5) % Plt Count 189 (140-400) K/mcL MPV 10.8 (9.4-12.4) fL Immature Gran % 0.7 (0-4) % Seg Neutrophils % 78.2 % Lymphocytes % 12.8 % Monocytes % 8.1 % Eosinophils % 0.1 % Basophils % 0.1 % Neutrophils # 7.9 (1.6-8.9) K/mcL Lymphocytes # 1.3 (0.6-4.6) K/mcL Monocytes # 0.8 (0.0-1.3) K/mcL Eosinophils # 0.0 (0.0-0.6) K/mcL Basophils # 0.0 (0.0-0.2) K/mcL D-Dimer (0-500) ng/mLFEU Sodium 139 (136-145) mEq/L Potassium 3.7 (3.5-4.5) mEq/L Chloride 103 (98-109) mEq/L Carbon Dioxide 27 (19-29) mEq/L BUN 30 H (7-20) mg/dL Creatinine 0.85 (0.57-1.11) mg/dL Est GFR ( Amer) > 60 (> 60) Est GFR (Non-Af Amer) > 60 (> 60) BUN/Creatinine Ratio 35 H (6-26) Glucose 105 H (70-99) mg/dL Calculated Osmolality 295 (280-300) Calcium 8.8 (8.6-10.8) mg/dL Troponin I (0-0.03) ng/mL Urine Color Yellow (Yellow) Urine Clarity Clear (Clear) Urine pH 7.0 (5.0-8.0) pH Units Ur Specific [place] 1.011 (1.010-1.025) Urine Protein Negative (Neg-Trace) mg/dL Urine Glucose (UA) Normal (Normal) mg/dL Urine Ketones Negative (Negative) mg/dL Urine Blood Negative (Negative) Urine Nitrite Negative (Negative) Urine Bilirubin Negative (Negative) Urine Urobilinogen Normal (Normal) mg/dL Ur Leukocyte Esterase Small H (Negative) Urine Microscopic RBC 0-3 (0-3) per hpf Urine Microscopic WBC 0-3 (0-3) per hpf Ur Squamous Epith Cells Moderate H (None-Few) per lpf Urine Bacteria None Seen (None-Few) per hpf Hyaline Casts None Seen (None-Few) per lpf Ur Culture Indicated? YES A (NO) 06/27/17 06/27/17 Range/Units 12:22 12:22 WBC (4.3-11.1) K/mcL RBC (3.82-4.97) M/mcL Hgb (11.5-15.4) g/dL Hct (35.3-44.9) % MCV (83.0-100.0) fL MCH (28.0-33.3) pg MCHC (31.6-35.5) g/dL RDW (11.5-14.5) % Plt Count (140-400) K/mcL MPV (9.4-12.4) fL Immature Gran % (0-4) % Seg Neutrophils % % Lymphocytes % % Monocytes % % Eosinophils % % Basophils % % Neutrophils # (1.6-8.9) K/mcL Lymphocytes # (0.6-4.6) K/mcL Monocytes # (0.0-1.3) K/mcL Eosinophils # (0.0-0.6) K/mcL Basophils # (0.0-0.2) K/mcL D-Dimer 971 H (0-500) ng/mLFEU Sodium (136-145) mEq/L Potassium (3.5-4.5) mEq/L Chloride (98-109) mEq/L Carbon Dioxide (19-29) mEq/L BUN (7-20) mg/dL Creatinine (0.57-1.11) mg/dL Est GFR ( Amer) (> 60) Est GFR (Non-Af Amer) (> 60) BUN/Creatinine Ratio (6-26) Glucose (70-99) mg/dL Calculated Osmolality (280-300) Calcium (8.6-10.8) mg/dL Troponin I 0.01 (0-0.03) ng/mL Urine Color (Yellow) Urine Clarity (Clear) Urine pH (5.0-8.0) pH Units Ur Specific [place] (1.010-1.025) Urine Protein (Neg-Trace) mg/dL Urine Glucose (UA) (Normal) mg/dL Urine Ketones (Negative) mg/dL Urine Blood (Negative) Urine Nitrite (Negative) Urine Bilirubin (Negative) Urine Urobilinogen (Normal) mg/dL Ur Leukocyte Esterase (Negative) Urine Microscopic RBC (0-3) per hpf Urine Microscopic WBC (0-3) per hpf Ur Squamous Epith Cells (None-Few) per lpf Urine Bacteria (None-Few) per hpf Hyaline Casts (None-Few) per lpf Ur Culture Indicated? (NO) - Radiology Data Radiology results reviewed: Yes I reviewed the patient's radiology results. - EKG Data EKG attestation: Yes I reviewed and interpreted this EKG. EKG results narrative: EKG done at 1137 review by myself and the attending shows normal sinus rhythm at a rate of 65, CO interval 157, QRS 96, QTC 423 with a normal axis. No acute ST changes, no acute T wave abnormalities other than flat T waves in V1 and 2 and 3, no signs of heart strain or hypertrophy, no signs of any heart block no signs of WPW/Brugada syndrome. The T waves are the only things that are changed to an old EKG done on 06/20/17. Attestation Statement - Attestation Attestation: I, Shad Hinojosa, examined this patient and my medical decision-making was reviewed with the ASSISTANT MANAGER PT/PA/Advanced Practice Nurse/Resident Physician. I agree with the documented findings, disposition and treatment plan as described except to the extent set forth below. 76-year-old female presents to emergency department for concerns of shortness of breath and chest pain. Patient states pain started acutely during the middle the night, she woke with a discomfort and burning in the center of her chest that did not radiate, this was associated with shortness of breath. Patient reports she also has this pain with exertion such as sweeping the floor. Patient denies diaphoresis or nausea or vomiting. Denies fever, chills , abdominal pain, diarrhea, recent trauma. Patient was seen in the emergency department within the past week, given steroids which moderately improved her symptoms however she had repeat of the chest pain and shortness of breath today prior to taking the last dose. Patient was placed on prednisone 40 mg daily during her last visit. Patient has new inverted T waves in V1 through V3 on her EKG which was normal sinus rhythm with rate of 65 without evidence of STEMI. Chest x-ray was negative for acute infiltrate. She feels comfortable with the plan for admission to hospital for further care and evaluation. Heart Score - Score History: Moderately Suspicious EKG: Non Specific repolarisation Disturbance Age: Greater than 65 Risk Factors: 1-2 risk factors Troponin: Less than normal limit HEART Score Total: 5
[2017-06-27 12:17] LABS: Bacteria,Urine None Seen per hpf (None-Few); Hyaline Casts,Urine None Seen per lpf (None-Few); RBC,Urine 0-3 per hpf (0-3); Squamous Epithelial Cell,Urine Moderate per lpf (None-Few); WBC,Urine 0-3 per hpf (0-3)
[2017-06-27 12:29] LABS: Basophils % 0.1 %; Eosinophils % 0.1 %; Hematocrit 38.6 % (35.3-44.9); Hemoglobin 13.1 g/dL (11.5-15.4); Immature Granulocytes % 0.7 % (0-4); Lymphocytes # 1.3 K/mcL (0.6-4.6); Lymphocytes % 12.8 %; Mean Corpuscular HGB Conc 33.9 g/dL (31.6-35.5); Mean Corpuscular Hemoglobin 29.4 pg (28.0-33.3); Mean Corpuscular Volume 86.7 fL (83.0-100.0); Mean Platelet Volume 10.8 fL (9.4-12.4); Monocytes # 0.8 K/mcL (0.0-1.3); Monocytes % 8.1 %; Neutrophils # 7.9 K/mcL (1.6-8.9); Platelet Count 189 K/mcL (140-400); Red Blood Count 4.45 M/mcL (3.82-4.97); Red Cell Distribution Width 12.3 % (11.5-14.5); Segmented Neutrophils % 78.2 %
[2017-06-27 12:39] LABS: BUN/Creatinine Ratio 35 (6-26); Blood Urea Nitrogen 30 mg/dL (7-20); Calcium 8.8 mg/dL (8.6-10.8); Carbon Dioxide 27 mEq/L (19-29); Chloride 103 mEq/L (98-109); Glucose 105 mg/dL (70-99); Osmolality,Calculated 295 (280-300); Potassium 3.7 mEq/L (3.5-4.5); Sodium 139 mEq/L (136-145); eGFR For African Americans > 60 (> 60); eGFR For Non-African Americans > 60 (> 60)
[2017-06-27] MEDS ORDERED: Nitroglycerin 0.4 MG TAB.SUBL SL PRN (13:25)
[2017-06-27] MEDS ORDERED: Aspirin 81 MG TAB.CHEW PO ONE (13:25)
--- NOTE | 2017-06-27 16:48 | Internal Med History&Physical ---
Date of Encounter: 06/27/17 Time of Encounter: 15:00 Assessment and Plan (1) Atypical chest pain Current visit: Yes Status: Acute -Patient with atypical chest pain which she describes as a burning sensation that radiates up to her neck. -EKG in the ER revealed T-wave inversions in V1 to V3; first set of troponins negative. -Will trend cardiac biomarkers and monitor on telemetry. -Will consult cardiology and appreciate recommendations. (2) GERD (gastroesophageal reflux disease) Current visit: No Status: Chronic -Suspicious if patient's symptoms are related to her GERD. -Will rule out ACS first and then address. -Continue home dose of PPI for now. Qualifiers: Esophagitis presence: esophagitis presence not specified Qualified Code(s) : K21.9 - Gastro-esophageal reflux disease without esophagitis (3) COPD (chronic obstructive pulmonary disease) Current visit: Yes Status: Acute -Stable, no wheezing on exam patient currently on room air. -Dual nebs as needed. Qualifiers: COPD type: emphysema Emphysema type: unspecified Qualified Code(s): J43.9 - Emphysema, unspecified (4) HTN (hypertension) Current visit: No Status: Acute -Continue home medications Qualifiers: Hypertension type: essential hypertension Qualified Code(s): I10 - Essential (primary) hypertension (5) Hypothyroid Current visit: No Status: Acute -Continue home medications. Qualifiers: Hypothyroidism type: unspecified Qualified Code(s): E03.9 - Hypothyroidism , unspecified (6) HLD (hyperlipidemia) Current visit: No Status: Chronic -Continue Simvastatin. Qualifiers: Hyperlipidemia type: unspecified Qualified Code(s): E78.5 - Hyperlipidemia , unspecified (7) DVT prophylaxis Current visit: No Status: Acute -Subcutaneous heparin. Internal Medicine - H&P: HPI Admitted From: Home Plans for Post Hospital Care: Home History of present illness: Patient is a 76-year-old female with past medical history significant for COPD, hypertension, hypothyroid, GERD and hyperlipidemia who presents to the ER on 05/04 with chest pain. Patient reports that her chest pain woke her up in the morning and she characterized as burning which radiated up to her throat and states it felt like a lump in her throat. She rated the severity of her chest pain a 10 out of 10 with no provoking or relieving factors. Patient denies any associated symptoms. Patient with recurrent shortness of breath for the last several months and has had 3 admissions for COPD exacerbation in the last 6 months. In the ER, CTA negative for pulmonary embolism or any acute pulmonary abnormality; mild emphysema seen. First set of cardiac biomarkers were negative but patient was reported to have T-wave changes in V1 V2 and V3. Patient with recent cardiac workup: -Echocardiogram on 12/2016 which showed LVEF of 60-65% with normal LV chamber size and function with mild left ventricular diastolic dysfunction; normal right ventricular structure and function. No valvular dysfunction identified. -Nuclear stress test on 02/2017 was negative for ischemia or infarct. Patient will therefore be admitted to medical surgical unit for ACS rule out. Past Med Surg Social Fam HX - Past Medical History Medical history: COPD, GERD, hyperlipidemia, hypertension, thyroid disease Psychiatric history: anxiety, depression - Past Surgical History Surgical History: cataract, cholecystectomy, hip replacement, hysterectomy, thyroidectomy - Social History Smoking Status: Former smoker Smokeless Tobacco Status: No Alcohol use: none Drug use: none - Family History Father Family Member Ethnicity: Non- Living Status: Hx Family Cardiac Disorders: Yes ([place]) Mother Family Member Ethnicity: Non- Living Status: Hx Family Endocrine Disorder: Yes (DM) Brother Family Member Ethnicity: Non- Living Status: Hx Family Cancer: Yes (Lung) Sister Family Member Ethnicity: Non- Living Status: Still Living Hx Family Endocrine Disorder: Yes (DM) Internal Medicine - H&P: Meds Aspirin Enteric Coated [Aspirin EC] 81 mg PO DAILY 01/10/17 [History] Calcium Carbonate/Vitamin D3 [Calcium 600 + Vit D Tablet] 1 tab PO DAILY [History] Carvedilol [Coreg] 50 mg PO BID 01/10/17 [History] Levothyroxine Sodium 100 mcg PO QAM 01/10/17 [History] Losartan/HCTZ [Hyzaar 50-12.5 Tablet] 1 tab PO BID 01/10/17 [History] Simvastatin [Zocor] 20 mg PO HS 01/10/17 [History] Albuterol Sulfate [Ventolin Hfa] 2 puff IH Q4H PRN 02/17/17 [History] Sucralfate [Carafate] 1 gm PO TID #90 tab 02/19/17 [Rx] PredniSONE [Deltasone] 20 mg PO BID #10 tablet 06/20/17 [Rx] Esomeprazole Magnesium [Nexium] 40 mg PO DAILY 06/27/17 [History] Umeclidinium Brm/Vilanterol Tr [Anoro Ellipta 62.5-25 Mcg INH] 1 puff IH DAILY 06/27/17 [History] clonazePAM [Klonopin] 0.5 mg PO DAILY PRN 06/27/17 [History] 3 Allergy/AdvReac Type Severity Reaction Status Date / Time sulfamethoxazole Allergy See Verified 06/27/17 11:27 [From Bactrim] Comments trimethoprim [From Bactrim] Allergy See Verified 06/27/17 11:27 Comments All Systems PM: A 10-system review of systems was performed and is negative for pertinent findings except as documented above in the HPI. - Constitutional Vitals: Temp Pulse Resp BP Pulse Ox 97.7 F 62 16 161/70 97 06/27/17 16:39 06/27/17 16:39 06/27/17 16:39 06/27/17 16:39 06/27/17 16:39 General appearance: Present: A&O X 3, no acute distress - Head Head exam: Present: normocephalic - Eye Eye exam: Present: normal appearance - ENT ENT exam: Present: mucous membranes moist - Respiratory Respiratory exam: Present: CTAB. Absent: accessory muscle use, rales, rhonchi, wheezes - Cardiovascular Cardiovascular exam: Present: RRR, +S1, +S2. Absent: diastolic murmur, gallop, rubs, systolic murmur - GI/Abdominal GI/Abdominal exam: Present: normal bowel sounds, soft, no peritoneal signs. Absent: distended, tenderness - Extremities Exam Extremities exam: Absent: pedal edema - Neurological Exam Neurological exam: Present: oriented X3, no focal deficits - Psychiatric Psychiatric exam: Present: normal mood - Skin Skin exam: Present: normal color Internal Med - H&P Results - Labs CBC & Chem 7: 06/27/17 12:22 06/27/17 12:22
[2017-06-27] MEDS ORDERED: Ondansetron 4 MG/2 ML VIAL IVP PRN (16:59)
[2017-06-27] MEDS ORDERED: Naloxone 0.4 MG/ML INJ IVP PRN (16:59)
[2017-06-27] MEDS ORDERED: Ketorolac 30 MG/ML VIAL IVP PRN (16:59)
[2017-06-27] MEDS ORDERED: clonazePAM 0.5 MG TABLET PO PRN (17:03)
[2017-06-27] MEDS ORDERED: NON-FORMULARY MEDICATION 1 EACH EACH (Esomeprazole Magnesium [Nexium] 40 MG) PO SCH (17:15)
[2017-06-27] MEDS: 0.9 % Sodium Chloride 1,000 ML IVC SCH (18:33)
[2017-06-27] MEDS: Sucralfate 1 GM TABLET PO SCH ×2 (18:33→20:50)
[2017-06-27] MEDS: *HR* Heparin 5,000 UNIT/ML VIAL SQ SCH (20:50)
[2017-06-27] MEDS: Losartan/HCTZ 50-12.5 TABLET PO SCH (20:50)
[2017-06-27] MEDS: predniSONE 20 MG TABLET PO SCH (20:50)
[2017-06-28] MEDS ORDERED: Sennosides/Docusate Sodium TABLET PO PRN (05:31)
[2017-06-28 05:36] LABS: Basophils % 0.1 %; Eosinophils % 0.1 %; Hematocrit 38.2 % (35.3-44.9); Hemoglobin 12.6 g/dL (11.5-15.4); Immature Granulocytes % 1.2 % (0-4); Lymphocytes # 1.1 K/mcL (0.6-4.6); Mean Corpuscular Hemoglobin 28.6 pg (28.0-33.3); Mean Corpuscular Volume 86.8 fL (83.0-100.0); Mean Platelet Volume 10.9 fL (9.4-12.4); Monocytes # 0.4 K/mcL (0.0-1.3); Monocytes % 3.7 %; Platelet Count 190 K/mcL (140-400); Red Cell Distribution Width 12.5 % (11.5-14.5); Segmented Neutrophils % 84.9 %
[2017-06-28] MEDS: *HR* Heparin 5,000 UNIT/ML VIAL SQ SCH ×2 (05:43→14:16)
[2017-06-28 05:52] LABS: BUN/Creatinine Ratio 33 (6-26); Blood Urea Nitrogen 30 mg/dL (7-20); Carbon Dioxide 26 mEq/L (19-29); Chloride 104 mEq/L (98-109); Glucose 118 mg/dL (70-99); Osmolality,Calculated 297 (280-300); Potassium 3.3 mEq/L (3.5-4.5); Sodium 140 mEq/L (136-145); eGFR For African Americans > 60 (> 60); eGFR For Non-African Americans 59 (> 60)
--- NOTE | 2017-06-28 05:52 | Event Note ---
Date of Encounter: 06/28/17 Time of Encounter: 05:49 Patient was complaining that she has not had a bowel movement for the past 4-5 days. I examined her abdomen and found that she had hyperactive bowel sounds present in all four quadrants. She admits that she has been able to pass gas. I put in PRN order for Senna Plus.
[2017-06-28] MEDS ORDERED: Aspirin Enteric Coated 81 MG Tablet PO SCH (09:00)
--- NOTE | 2017-06-28 09:30 | Cardiology Consult Note ---
Date of Encounter: 06/28/17 Time of Encounter: 09:25 Assessment and Plan (1) Chest pain Current Visit: Yes Status: Acute Troponins negative x 4. No acute EKG changes. No hx of CAD. Risk factors include HTN, HLD, former tobacco abuse, obesity. Chest pain typically occurs at night, wakes her from sleep, during times to accelerated HTN when BP is >200/100. Midsternal, burning, with radiation into neck. CP is nonexertional. Seems to correlate with hypertensive episodes. Stress test 02/18/17 perfusion imaging negative for ischemia or infarct. Gated EF >70%. Echo 01/11/17 EF preserved, normal wall motion. Recommend optimal BP control. Will further discuss with Dr. Carbone to determine if further ischemic evaluation is warranted ([facility]). Check Limited echo to evaluate EF/wall motion. Continue to follow. Qualifiers: Chest pain type: unspecified Qualified Code(s): R07.9 - Chest pain, unspecified (2) HTN (hypertension) Current Visit: Yes Status: Chronic Not well controlled. Will add norvasc 5mg daily. Already on BB and ARB at high doses. Qualifiers: Hypertension type: essential hypertension Qualified Code(s): I10 - Essential (primary) hypertension Discussion w patient/family: The assessment and plan as outlined above was discussed with the patient and/or family members who expressed understanding and agreement. All questions were answered. Thank you for involving us in the care of your patient. Please call with any questions. I will discuss all the above with Dr. Carbone and make changes as necessary. History of Present Illness Consult date: 06/28/17 Requesting physician: Frederick Apple Consult reason: chest pain Chief complaint: chest pain, dyspnea History of present illness: Ms. Molina is a 76 year old female with past medical history of COPD, hypertension, hypothyroidism, GERD and hyperlipidemia who presented to the ER on 06/27/17 with chest pain. Patient reports that her chest pain woke her up at 3AM, described as burning with radiation to her throat/neck, and states it felt like a lump in her throat. She reports the chest pain waking her from sleep has been occurring over recent months and typically occurs when her blood pressure is elevated, at times >200/100. Patient with recurrent shortness of breath for the last several months and has had 3 admissions for COPD exacerbation in the last 6 months. In the ER, CTA negative for pulmonary embolism or any acute pulmonary abnormality; mild emphysema seen. Troponins negative x 4. Prior CV testing: -Echo 12/2016 LVEF 60-65%, normal wall motion, mild LVDD, normal right ventricular structure and function. No significant valvular dysfunction. -Pharmacologic nuclear stress test 02/2017 was negative for ischemia or infarct. Gated EF >70%. Past Med Surg Social Fam HX - Past Medical History Medical history: COPD, GERD, hyperlipidemia, hypertension, thyroid disease Psychiatric history: anxiety, depression - Past Surgical History Surgical History: cataract, cholecystectomy, hip replacement, hysterectomy, thyroidectomy - Social History Smoking Status: Former smoker Smokeless Tobacco Status: No Alcohol use: none Drug use: none - Family History Father Family Member Ethnicity: Non- Living Status: Hx Family Cardiac Disorders: Yes Mother Family Member Ethnicity: Non- Living Status: Hx Family Endocrine Disorder: Yes Brother Family Member Ethnicity: Non- Living Status: Hx Family Cancer: Yes Sister Family Member Ethnicity: Non- Living Status: Still Living Hx Family Endocrine Disorder: Yes Medications and Allergies Aspirin Enteric Coated [Aspirin EC] 81 mg PO DAILY 01/10/17 [History] Calcium Carbonate/Vitamin D3 [Calcium 600 + Vit D Tablet] 1 tab PO DAILY [History] Carvedilol [Coreg] 50 mg PO BID 01/10/17 [History] Levothyroxine Sodium 100 mcg PO QAM 01/10/17 [History] Losartan/HCTZ [Hyzaar 50-12.5 Tablet] 1 tab PO BID 01/10/17 [History] Simvastatin [Zocor] 20 mg PO HS 01/10/17 [History] Albuterol Sulfate [Ventolin Hfa] 2 puff IH Q4H PRN 02/17/17 [History] Sucralfate [Carafate] 1 gm PO TID #90 tab 02/19/17 [Rx] PredniSONE [Deltasone] 20 mg PO BID #10 tablet 06/20/17 [Rx] Esomeprazole Magnesium [Nexium] 40 mg PO DAILY 06/27/17 [History] Umeclidinium Brm/Vilanterol Tr [Anoro Ellipta 62.5-25 Mcg INH] 1 puff IH DAILY 06/27/17 [History] clonazePAM [Klonopin] 0.5 mg PO DAILY PRN 06/27/17 [History] 3 Allergy/AdvReac Type Severity Reaction Status Date / Time sulfamethoxazole Allergy See Verified 06/27/17 11:27 [From Bactrim] Comments trimethoprim [From Bactrim] Allergy See Verified 06/27/17 11:27 Comments All Systems Review: A 10-system review of systems was performed and is negative for pertinent findings except as documented above in the HPI. - Cardiovascular Cardiovascular: as per HPI, chest pain at rest, dyspnea at rest, dyspnea on exertion, radiating jaw, neck or arm pain - Respiratory Respiratory: dyspnea Physical Examination Vital Signs, Last 4 Hours Temp Pulse Resp BP Pulse Ox 06/28/17 07:33 98.2 F 71 17 168/77 98 Vital Signs Temp Pulse Resp BP Pulse Ox 06/28/17 07:33 98.2 F 71 17 168/77 98 06/28/17 03:10 97.6 F 69 17 150/66 98 06/27/17 23:36 98.8 F 80 16 132/57 97 06/27/17 19:40 97.8 F 69 16 137/72 97 06/27/17 16:39 97.7 F 62 16 161/70 97 06/27/17 14:20 70 16 182/88 97 06/27/17 13:47 16 182/88 98 06/27/17 11:25 97.9 F 66 22 168/80 99 Intake and Output 06/27/17 06/28/17 06/28/17 23:59 07:59 15:59 Intake Total 0 / 0 500 / 500 Output Total 300 / 300 Balance 0 / 0 200 / 200 Intake: Oral 0 / 0 500 / 500 Output: Urine 300 / 300 Other: Meal Dinner Percent of Meal Consumed 50% Weight 90.673 kg Patient Weight 06/28/17 23:59 Weight 90.673 kg General: Conversant, No Apparent Distress HEENT: Atraumatic, Normocephaly, Mucus Membranes Moist Neck: No JVD, Normal carotid pulses Cardiac: Reg Rate and Rhythm, Normal S1 and S2, No Murmur Lungs: Other (diminished) Neuro: Alert and responsive, No focal deficits noted Abdomen: Soft, Non-Tender Skin: No rashes noted on visualized skin Musculoskeletal: No Chest Wall Tenderness Extremities: No Clubbing, No Cyanosis, No Edema, Normal Pulses Results 06/28/17 05:07 06/28/17 05:07 Lab Results 06/27/17 06/27/17 06/28/17 17:34 22:48 05:07 WBC 10.7 Hgb 12.6 Hct 38.2 Plt Count 190 Sodium Potassium Chloride Carbon Dioxide BUN Creatinine Glucose Calcium Troponin I 0.01 0.00 06/28/17 06/28/17 05:07 05:07 WBC Hgb Hct Plt Count Sodium 140 Potassium 3.3 L Chloride 104 Carbon Dioxide 26 BUN 30 H Creatinine 0.92 Glucose 118 H Calcium 8.0 L Troponin I 0.02 Short CBC 06/28/17 06/27/17 Range/Units 05:07 12:22 WBC 10.7 10.1 (4.3-11.1) K/mcL Hgb 12.6 13.1 (11.5-15.4) g/dL Hct 38.2 38.6 (35.3-44.9) % Plt Count 190 189 (140-400) K/mcL Neutrophils # 9.0 H 7.9 (1.6-8.9) K/mcL BMP 06/28/17 06/27/17 Range/Units 05:07 12:22 Sodium 140 139 (136-145) mEq/L Potassium 3.3 L 3.7 (3.5-4.5) mEq/L Chloride 104 103 (98-109) mEq/L Carbon Dioxide 26 27 (19-29) mEq/L BUN 30 H 30 H (7-20) mg/dL Creatinine 0.92 0.85 (0.57-1.11) mg/dL Glucose 118 H 105 H (70-99) mg/dL Calcium 8.0 L 8.8 (8.6-10.8) mg/dL Cardiac Enzymes 06/28/17 06/27/17 06/27/17 Range/Units 05:07 22:48 17:34 Troponin I 0.02 0.00 0.01 (0-0.03) ng/mL 06/27/17 Range/Units 12:22 Troponin I 0.01 (0-0.03) ng/mL Urine 06/27/17 Range/Units 12:08 Urine Color Yellow (Yellow) Urine Clarity Clear (Clear) Urine pH 7.0 (5.0-8.0) pH Units Ur Specific [place] 1.011 (1.010-1.025) Urine Protein Negative (Neg-Trace) mg/dL Urine Glucose (UA) Normal (Normal) mg/dL Impressions Chest X-Ray 06/27/17 11:52 IMPRESSION: No evidence for acute cardiopulmonary process. Stable cardiomegaly. D/ / Armando Sesay MD / Armando Sesay MD Interpreting Provider: Armando Sesay MD Chest CTA 06/27/17 13:26 IMPRESSION: No evidence of pulmonary embolism or acute pulmonary abnormality. Atherosclerosis to include coronary artery disease. Stable mild cardiomegaly. Mild emphysema. D/ / 06/27/2017 14:25:43 Armando Sesay MD / donna Interpreting Provider: Armando Sesay MD Active Medications Albuterol Sulfate (Albuterol Inhaler) 2 puff IH Q4H PRN PRN Reason: Shortness Of Breath Stop: 12/27/17 17:04 Aspirin (Aspirin Ec) 81 mg PO DAILY [facility] Stop: 12/28/17 09:01 Carvedilol (Coreg) 50 mg PO BID ONESIMO PRN Reason: Protocol Stop: 12/27/17 21:01 Last Admin: 06/27/17 20:50 Dose: 50 mg Clonazepam (Klonopin) 0.5 mg PO DAILY PRN PRN Reason: Anxiety Stop: 12/27/17 17:04 HCTZ/Losartan Potassium (Hyzaar 50/12.5) 1 each PO BID [facility] Stop: 12/27/17 21:01 Last Admin: 06/27/17 20:50 Dose: 1 each Heparin Sodium (Porcine) (Heparin) 5,000 unit SQ Q8HCO [facility] Stop: 12/27/17 22:01 Last Admin: 06/28/17 05:43 Dose: 5,000 unit Sodium Chloride (0.9 % Sodium Chloride) 1,000 mls @ 75 mls/hr IVC .[id number] [facility] Stop: 06/28/17 19:39 Last Admin: 06/27/17 18:33 Dose: 75 mls/hr Ketorolac Tromethamine (Toradol) 30 mg IVP Q6HR PRN PRN Reason: Moderate Pain (4-6) Stop: 07/02/17 17:00 Levothyroxine Sodium (Synthroid) 100 mcg PO 0630 [facility] Stop: 12/28/17 06:31 Last Admin: 06/28/17 05:43 Dose: 100 mcg Naloxone HCl (Narcan) 0.4 mg IVP Q2MIN PRN PRN Reason: Opioid Reversal Stop: 12/27/17 17:00 Nitroglycerin (Nitroglycerin) 0.4 mg SL Q5MIN PRN PRN Reason: Chest Pain Stop: 12/27/17 13:26 Omeprazole (Prilosec) 40 mg PO DAILY@0730 [facility] Stop: 12/27/17 18:31 Last Admin: 06/27/17 20:50 Dose: 40 mg Ondansetron HCl (Zofran) 4 mg IVP Q8HR PRN PRN Reason: Nausea And Vomiting Stop: 12/27/17 17:00 Pharmacy Profile Note (Patient Taking Own Medication) 0 each IH DAILYR [facility] Stop: 12/28/17 10:01 Last Admin: 06/28/17 08:20 Dose: Not Given Prednisone (Prednisone) 20 mg PO BID [facility] Stop: 12/27/17 21:01 Last Admin: 06/27/17 20:50 Dose: 20 mg Senna/Docusate Sodium (Senna Plus) 2 each PO BID PRN; Protocol PRN Reason: Constipation Stop: 12/28/17 05:32 Last Admin: 06/28/17 05:43 Dose: 2 each Simvastatin (Zocor) 20 mg PO HS ONESIMO PRN Reason: Protocol Stop: 12/27/17 21:01 Last Admin: 06/27/17 20:50 Dose: 20 mg Sucralfate (Carafate) 1 gm PO TID [facility] Stop: 12/27/17 17:16 Last Admin: 06/27/17 20:50 Dose: 1 gm - Imaging and Cardiology Stress Test: report reviewed Echo: report reviewed - EKG Interpretation EKG results cardiology: personally reviewed (SR) Consult Discharge Plan - Plan Referrals: Ling Gomez, MONITORING ANALYST [Primary Care Provider] -
[2017-06-28] MEDS: predniSONE 20 MG TABLET PO SCH (09:44)
[2017-06-28] MEDS: Losartan/HCTZ 50-12.5 TABLET PO SCH (09:44)
[2017-06-28] MEDS: Sucralfate 1 GM TABLET PO SCH (09:44)
[2017-06-28] MEDS: 0.9 % Sodium Chloride 1,000 ML IVC SCH (09:50)
--- NOTE | 2017-06-28 09:59 | Internal Med Progress Note ---
<Delonte Grant - Last Filed: 06/28/17 16:34> Date of Encounter: 06/28/17 Time of Encounter: 08:15 - Assessment and plan (1) Atypical chest pain Current Visit: Yes Status: Acute Assessment and plan: Patient presented with atypical chest pain; burning sensation rating up to the neck. -Troponins were negative; T-wave inversions in V1 to V3. -Trend cardiac biomarkers. -Continuous telemetry. -Cardiology has been consulted; would appreciate recommendations. (2) COPD with exacerbation Current Visit: No Status: Acute Assessment and plan: Patient has no history of COPD. No shortness of breath at this time. Plan: -Prednisone 20 mg PO BID -Albuterol inhaler (3) Hypothyroid Current Visit: No Status: Acute Assessment and plan: Synthroid 100mcg PO Qualifiers: Hypothyroidism type: unspecified Qualified Code(s): E03.9 - Hypothyroidism , unspecified (4) GERD (gastroesophageal reflux disease) Current Visit: No Status: Chronic Assessment and plan: Nexium 40 mg PO daily Prilosec 40 mg by mouth daily. Qualifiers: Esophagitis presence: esophagitis presence not specified Qualified Code(s) : K21.9 - Gastro-esophageal reflux disease without esophagitis (5) HTN (hypertension) Current Visit: Yes Status: Chronic Assessment and plan: Patient has a known history of hypertension. Patient's blood pressure this morning was 168/77. Losartan/hydrochlorothiazide 1 each by mouth twice a day. Coreg 50 mg by mouth twice a day Qualifiers: Hypertension type: essential hypertension Qualified Code(s): I10 - Essential (primary) hypertension (6) HLD (hyperlipidemia) Current Visit: No Status: Chronic Assessment and plan: Zocor 20 mg by mouth at bedtime Qualifiers: Hyperlipidemia type: unspecified Qualified Code(s): E78.5 - Hyperlipidemia , unspecified (7) DVT prophylaxis Current Visit: No Status: Acute Assessment and plan: Heparin 5000 subcutaneous every 8. - Subjective Interval history: Patient is a 76-year-old female who presented to the hospital on 06/27/17. Presented with shortness of breath and a burning chest sensation for 2 weeks. Patient's chest pain woke her up in the morning, and she characterizes it as a burning sensation which radiated up to her throat. She described the sensation like a lump in her throat. Rated 10 out of 10. She was seen one week ago for COPD exacerbation. She has had recurrent episodes of shortness of breath for the last several months, and has had 3 admissions for COPD exacerbation in the last 6 months. She was sent home on steroids. Uses a CPAP machine at night. She also has a DuoNeb and steroid inhaler. Patient's condition improved with albuterol treatments. In the emergency department, CTA was obtained, negative for pulmonary embolism or any acute pulmonary abnormality. Mild emphysema was seen. First set of troponins were negative, but patient was noted to have T-wave inversions in leads V1 through V3. These changes were not on the previous EKG. Nuclear stress test on 02/2017 was negative for ischemia or infarct. Patient seen and examined this morning. Reports an improvement of her symptoms. She no longer has any chest pain or shortness of breath. She admits that she has been constipated, and has not had a bowel movement yet. She states that she was given laxatives earlier this morning. She is resting comfortably in bed and has no other complaints at this time. - Constitutional Vitals: Temp Pulse Resp BP Pulse Ox 98.2 F 71 17 168/77 98 06/28/17 07:33 06/28/17 07:33 06/28/17 07:33 06/28/17 07:33 06/28/17 07:33 General appearance: Present: A&O X 3, no acute distress - Head Head exam: Present: atraumatic, normocephalic - Eye Eye exam: Present: PERRL, conjuntiva pink, sclera anicteric Pupils: Present: PERRL - Neck Neck exam general surgery: Present: supple, trachea midline. Absent: lymphadenopathy - Respiratory Respiratory exam: Present: decreased breath sounds. Absent: accessory muscle use, rales, rhonchi, wheezes - Cardiovascular Cardiovascular exam: Present: RRR, +S1, +S2. Absent: diastolic murmur, gallop, rubs, systolic murmur - GI/Abdominal GI/Abdominal exam: Present: normal bowel sounds, soft, no peritoneal signs. Absent: tenderness - Extremities Exam Extremities exam: Present: warm, radial pulses palpable and symmetrical. Absent : calf tenderness, cyanotic, pedal edema - Skin Skin exam: Present: dry, intact Internal Medicine: Result - Labs CBC & Chem 7: 06/28/17 05:07 06/28/17 05:07 Labs: Short CBC 06/28/17 Range/Units 05:07 WBC 10.7 (4.3-11.1) K/mcL Hgb 12.6 (11.5-15.4) g/dL Hct 38.2 (35.3-44.9) % Plt Count 190 (140-400) K/mcL Neutrophils # 9.0 H (1.6-8.9) K/mcL BMP 06/28/17 05:07 Sodium 140 Potassium 3.3 L Chloride 104 Carbon Dioxide 26 BUN 30 H Creatinine 0.92 Glucose 118 H Calcium 8.0 L Cardiac Enzymes 06/27/17 06/27/17 06/28/17 Range/Units 17:34 22:48 05:07 Troponin I 0.01 0.00 0.02 (0-0.03) ng/mL - ABG Interpretation ABG results: PT/INR, D-dimer D-Dimer 971 ng/mLFEU (0-500) H 06/27/17 12:22 Consult Discharge Plan - Plan Instructions: Chest Pain (DC), Chronic Obstructive Pulmonary Disease (DC), Chronic Hypertension (DC) Referrals: Ling Gomez CNP [Primary Care Provider] - 06/29/17 3:40 pm (please follow up as schedule.....) <Angelo Dobson - Last Filed: 06/28/17 19:01> Date of Encounter: 06/28/17 - Constitutional Vitals: Temp Pulse Resp BP Pulse Ox 98.2 F 69 16 149/76 98 06/28/17 11:41 06/28/17 11:41 06/28/17 11:41 06/28/17 11:41 06/28/17 11:41 Internal Medicine: Result - Labs CBC & Chem 7: 06/28/17 05:07 06/28/17 05:07 Labs: Short CBC 06/28/17 Range/Units 05:07 WBC 10.7 (4.3-11.1) K/mcL Hgb 12.6 (11.5-15.4) g/dL Hct 38.2 (35.3-44.9) % Plt Count 190 (140-400) K/mcL Neutrophils # 9.0 H (1.6-8.9) K/mcL BMP 06/28/17 05:07 Sodium 140 Potassium 3.3 L Chloride 104 Carbon Dioxide 26 BUN 30 H Creatinine 0.92 Glucose 118 H Calcium 8.0 L Cardiac Enzymes 06/27/17 06/28/17 Range/Units 22:48 05:07 Troponin I 0.00 0.02 (0-0.03) ng/mL - ABG Interpretation ABG results: PT/INR, D-dimer D-Dimer 971 ng/mLFEU (0-500) H 06/27/17 12:22 - Impressions Impressions Echocardiogram Limited Views 06/28/17 10:22 Impressions: LVEF 60%. Mild concentric left ventricular hypertrophy. Normal right ventricular structure and function. Normal sized aortic root. Ascending aorta not well visualized. Left Ventricular Wall Motion: Rest Echo Findings All wall segments showed normal motion. Findings: Study Quality * Technically adequate exam. ECG Findings * Normal sinus rhythm. Left Ventricle * Mild concentric left ventricular hypertrophy. * LVEF 60%. Right Ventricle * Normal right ventricular structure and function. Aorta * Normally sized aortic root. * Ascending aorta not well visualized. - Attending Attestation I conducted a face to face diagnostic evaluation of this patient and my medical decision-making was reviewed with the Resident Physician, Dr. Delonte Grant. I agree with the documented findings, disposition and treatment plan as described except to the extent set forth below: Patient reports chest pain. She will continue with Nexium which I instructed her to take twice daily as prescribed. She will continue with Carafate. I will give her a prescription for Norvasc 5 mg daily for uncontrolled hypertension, this should be titrated outpatient with PCP to achieve blood pressure goal. She was advised to follow up with gastroenterology within 4 weeks of discharge for EGD.
[2017-06-28] MEDS ORDERED: amLODIPine 5 MG TABLET PO SCH (10:30)
[2017-06-28] MEDS ORDERED: Sucralfate 1 GM TABLET PO SCH (11:30)
[2017-06-28 11:44] VITALS: BP 149/76
[2017-06-28] MEDS ORDERED: *HR* Heparin 10,000 UNIT/10 ML VIAL ONE (12:30)
[2017-06-28] MEDS ORDERED: Heparin 1,000 UNITS/500 mL NS 500 ML ONE (12:30)
[2017-06-28] MEDS ORDERED: Nitroglycerin 1,000 MCG/10 ML VIAL IV ONE (12:30)
[2017-06-28] MEDS ORDERED: 0.9 % Sodium Chloride 1,000 ML ONE ×2 (12:30→13:04)
--- NOTE | 2017-06-28 13:07 | Pre-Sedation Evaluation ---
Pre-sedation evaluation - Pre-sedation checklist Date of procedure: 06/28/17 Procedure: C Recent Vitals: Last Vital Signs Temp 98.2 F 06/28/17 11:41 Pulse 69 06/28/17 11:41 Resp 16 06/28/17 11:41 BP 149/76 06/28/17 11:41 Pulse Ox 98 06/28/17 11:41 Dietary Status: NPO after Midnight Possible difficult airway: No ASA Classification *see protocol: CLASS II-Mild systemic disease Plan of Care: Pt appropriate candidate for procedure/moderate/conscious sedation
[2017-06-28] MEDS ORDERED: *HR* Midazolam HCl 2 MG/2 ML VIAL ONE (13:10)
[2017-06-28] MEDS ORDERED: *HR* FentaNYL (PF) 100 MCG/2 ML VIAL ONE (13:10)
--- NOTE | 2017-06-28 13:36 | Event Note ---
Date of Encounter: 06/28/17 Time of Encounter: 13:35 - Cardiology Event Note Limited echo EF preserved. LHC nonobstructive disease, per Dr. Garcia. Per Dr. Garcia, 40% distal LCx lesion. Continue ASA, Statin, BB. Cardiology signing off. Reconsult PRN. Will coordinate outpt follow-up. Recommend optimal BP control.
--- NOTE | 2017-06-28 13:55 | Invasive Diagnostic Lab Proc ---
Name: Jacy Molina Date of Study: 06/28/2017 Date: 1940 Ht: 63.0in Medical Record#: [id number] Age: 76 Wt: 200.62lb Gender: Female BSA: 1.94 Order #: [id number] BMI: 35.55 Physicians Procedure Physician: Canelo Garcia MD Referring MD: Referring MD: Staff Name Position Time In Ju Iqbal RN Hand Candy Cutter 12:27 PM David Boss RT (R) Monitor 12:27 PM Rina Barrett RT (R) Scrub 12:27 PM Iveth Rodriguez RT Monitor 01:32 PM Indications Indication Unstable Angina Procedures Performed Procedure L HRT ARTERY/VENTRICLE ANGIO Pre-Procedure Checklist Informed consent is complete signed and on chart. H&P is on chart. ID band is on and ID verified with patient. Patient NPO for procedure The procedure was described for the patient and questions were answered. Blood Pressure: 168/77 ECG is on chart. Rhythm: NSR Plan of Care Patient will tolerate the procedure without complications. Adequate level of comfort will be maintained. Hemodynamics will remain stable Patient will recover from procedure without complications. Respiratory function will be maintained. Cardiac rhythm will remain stable. Patient temperature will be maintained. Patient and/or family have verbalized understanding of the procedure. Patient Education Chief Complaint/Reason for Test: Cardiac Cath Developmental Category: Geriatric (65+ years) Developmentally Appropriate for Age: Yes Learning Barriers: None Education Needs: Procedure Education Method: Verbal Information Taught: Cardiac Cath Educational Evaluation: Able to repeat information Intravenous Access Time IV Size Location DC'd Fluid/Drip Rate Units RN 12:57 PM 20g 1 1/" Patent On Arrival Lt Antecubital 0.9NaCl 25 ml/hr Ju Iqbal RN Allergies sulfamethoxazole trimethoprim Vital Signs Time BP (mmHg) HR (bpm) O2 Sat. RR (bpm) LOC 12:57 PM 168 / 77 71 98 % 17 5 = Fully awake and oriented or at pre-proc level 12:55 PM / % 5 = Fully awake and oriented or at pre-proc level 01:12 PM / % 4 = Oriented but drowsy 01:27 PM / % 5 = Fully awake and oriented or at pre-proc level 01:05 PM 193 / 89 76 100 % 29 01:09 PM 203 / 92 72 100 % 17 01:13 PM 196 / 88 73 100 % 19 01:18 PM 177 / 83 68 100 % 24 01:23 PM 188 / 83 70 99 % 18 01:28 PM 192 / 86 72 98 % 23 01:34 PM 167 / 78 70 98 % 16 01:38 PM 166 / 74 75 97 % 26 01:43 PM 178 / 78 68 96 % 21 Procedural Medications Time Medication Dose Units Method Given By 01:05 PM Oxygen 2 L/min nasal cannula Ju Iqbal RN 01:12 PM Versed 1 mg Intravenous Ju Iqbal RN 01:12 PM Fentanyl 50 mcg Intravenous Ju Iqbal RN 01:16 PM Lidocaine 2% 10 ml Subcutaneous Canelo Garcia MD ASA Classification: CLASS III- Severe systemic disease (i.e. prior AMI, diabetes with vascular complications, morbid obesity) Reilly Score Preprocedure Postprocedure Activity 2- Moves 4 extremities sustained head lift Activity 2- Moves 4 extremities sustained head lift Circulation 2- SBP +/= 20 points of pre-anesthetic level Circulation 2- SBP +/= 20 points of pre-anesthetic level Consciousness 2- Awake and alert oriented x 3 Consciousness 2- Awake and alert oriented x 3 O2 Saturation 2- Able to maintain O2 satruation of 92% on room air O2 Saturation 2- Able to maintain O2 satruation of 92% on room air Respiratory 2- Able to deep breathe and cough well Respiratory 2- Able to deep breathe and cough well Total Score 10 Total Score 10 Contrast Agent: Isovue Diagnostic Contrast: 40 ml Total Contrast: 40 ml Fluoro Dose: 188 mGy Procedure Log Time Note Enter By 12:27 PM Ju Iqbal RN Position: Hand Candy Cutter Time in: 12:27 2 12:27 PM David Boss RT (R) Position: Monitor Time in: 12:27 [email or web address] 12:28 PM Rina Barrett RT (R) Position: Scrub Time in: 12:27 [email or web address] 12:28 PM Patient charges- Angio tray pack, Navilyst 3mm J, Pulse Oximetry and ACIST tubing and transducer [email or web address] 12:28 PM Clinical Presentation: Unstable angina [email or web address] 12:55 PM Pt arrived to clinical laboratory technologist 2 at 12:55 [email or web address] 12:55 PM Case Delayed No [email or web address] 12:55 PM Time: 12:55 Patient comfortable and pain free: Yes 12:55 PM Time: 12:55LOC: 5 = Fully awake and oriented or at pre-proc level [email or web address] 12:58 PM CathStat 01:03 PM Physician arrived 13:: PM Nas and mau completed : PM Sign in performed according to hospital policy. : PM Procedure start 13:: PM Vitals capture started with the following parameters, Patient=Adult, Interval=5 min, Initial Hwfywwio=782 mmHg, Deflation Rate=5 mmHg, Cuff placed on Right Arm :03 PM ASA Class CLASS III- Severe systemic disease (i.e. prior AMI, diabetes with vascular complications, morbid obesity) : PM Recorded ECG: HR=74 Condition=Condition 1 01:05 PM HR=76 bpm, LALZ=294/89 mmhg, CyK7=530.0 %, Resp=29 B/min 01:05 PM Hair removed from procedure site in procedure lab using clippers. Bilateral groin prepped with Chloraprep by Rina Barrett (Alexys), safety strap applied then patient was draped. Skin intact. :05 PM Time: 13:05 Oxygen on at 2 L/min per nasal cannula by Ju Iqbal RN 01:09 PM HR=72 bpm, QPIJ=876/92 mmhg, BaK8=888.0 %, Resp=17 B/min 01:11 PM Pressure channel 1 zero failed. 01:11 PM Pressure channel 1 zeroed. 01:12 PM Time: 12:55LOC: 5 = Fully awake and oriented or at pre-proc level :12 PM Time: 12:55 Patient comfortable and pain free: Yes :12 PM Time: 13:12 Versed 1 mg Intravenous Given by Ju Iqbal RN :12 PM Time: 13:12 Fentanyl 50 mcg Intravenous Given by Ju Iqbal RN :12 PM Vitals capture stopped. 01:12 PM Vitals capture started with the following parameters, Patient=Adult, Interval=5 min, Initial Tprxkpcr=818 mmHg, Deflation Rate=5 mmHg, Cuff placed on Right Arm :13 PM Pressure channel 1 zero failed. 01:13 PM Pressure channel 1 zeroed. 01:13 PM HR=73 bpm, ZTJZ=125/88 mmhg, ZaJ3=898.0 %, Resp=19 B/min, Comment=nsr 01:16 PM Time out performed according to hospital policy :17 PM Time: 13:16 10 ml Lidocaine 2% to right groin Subcutaneous Given by Canelo Garcia MD :17 PM Micro-Introducer Kit utilized for sheath placement :18 PM Bolus angiogram of right Femoral complete: hand injected 5cc contrast. :18 PM HR=68 bpm, GCGC=849/83 mmhg, ZcV4=655.0 %, Resp=24 B/min, Comment=nsr :18 PM Access obtained by percutaneous puncture. 6Fr 10cm Terumo [place] sheath placed in right Femoral artery. [id number] :19 PM 0.035 145cm Navilyst 3mmJ wire [id number] :19 PM 5Fr FR 4 catheter inserted over the wire [facility] : PM Recorded Pressure: Ao, HR=68, Condition=Condition 1 (Aorta) Ao 188/80/124 01:20 PM RCA angiography performed in multiple views. : PM Coronary Dominance: right : PM Recorded Pressure: Ao, HR=67, Condition=Condition 1 (Aorta) Ao 154/73/107 01:21 PM Lesion found in Mid RCA. Pre Stenosis: 40 Pre NIVIA Flow: :22 PM Right Coronary, Right Posterior Descending Arteries with Right Posterolateral and Acute Marginal branches with 40 % stenosis. If graft is supplying this area, 0 % stenosis :22 PM Catheter removed :22 PM 5Fr FL 4 catheter inserted over the wire [facility] :23 PM LCA angiography performed in multiple views. :23 PM HR=70 bpm, HSMU=590/83 mmhg, SpO2=99.0 %, Resp=18 B/min, Comment=nsr :23 PM Recorded Pressure: Ao, HR=69, Condition=Condition 1 (Aorta) Ao 205/55/130 01:24 PM Lesion found in Distal Circumflex. Pre Stenosis: 25 Pre NIVIA Flow: :25 PM Circumflex, Obtuse Marginal, Left Posterior Descending, and Left Posterolateral Coronary Arteries with 25 % stenosis. If graft is supplying this area, 0 % stenosis :25 PM Lesion found in LMCA. Pre Stenosis: 20 Pre NIVIA Flow: 2 :25 PM Left Main Coronary Artery with 20% stenosis bw:25 PM Catheter removed : PM 5Fr Pigtail catheter inserted over the wire [facility] : PM Catheter selectively placed in left ventricle bw: PM Recorded Pressure: LV, HR=67, Condition=Condition 1 (Left Ventricle) LV 187/10/17 01:27 PM Recorded Pressure: LV, Ao, HR=75, Condition=Condition 1 (Left Ventricle) LV 196/6/15, (Aorta) Ao 210/44/126 01: PM Time: 13:12 Patient comfortable and pain free: Yes PM Time: 13:12LOC: 4 = Oriented but drowsy : PM Catheter removed : PM Procedure completed at 13:28 bw: PM HR=72 bpm, VKVC=415/86 mmhg, SpO2=98.0 %, Resp=23 B/min, Comment=nsr : PM Sign out completed: Radiation Dose 188.15 mGy Fluoro Time: 1.7 Isovue 370 - 200ml contrast 40 ml given by Canelo Garcia MD. Complications: NoneCardiac Rehab Consult needed: NoConfirmed administered medications: Yes 2 :29 PM Estimated Blood Loss: minimal [email or web address] :29 PM Post ECG NSR [email or web address] :29 PM Post Blood Pressure 192/86 [email or web address] 01:29 PM Information taught Cardiac Cath [email or web address] 01:29 PM Education needs Procedure, Plan of Care, and Disease Process [email or web address] 01:30 PM Learning barriers :Sedated [email or web address] 01:30 PM Education Methods Verbal [email or web address] 01:30 PM Education evaluation Needs further instruction [email or web address] 01:30 PM Delay to floor No [email or web address] 01:30 PM Complications: None [email or web address] 01:30 PM Fluoro Time: 1.7 [email or web address] 01:30 PM Isovue 370 - 200ml contrast 40 ml given by Canelo Garcia MD. 01:30 PM Radiation Dose 188.15 mGy [email or web address] 01:30 PM No family [email or web address] 01:32 PM Arterial sheath pulled using manual compression by Rina Barrett RT (R) 01:33 PM Iveth Rodriguez RT Position: Monitor Time in: 13:32 2 01:34 PM HR=70 bpm, PVKD=308/78 mmhg, SpO2=98.0 %, Resp=16 B/min 01:36 PM Report given to servando SANCHEZ Pt taken to 2A Room #38. 13:33 2 01:38 PM HR=75 bpm, BFCC=152/74 mmhg, SpO2=97.0 %, Resp=26 B/min 01:42 PM Time: 13:27 Patient comfortable and pain free: Yes 01:42 PM Time: 13:27LOC: 5 = Fully awake and oriented or at pre-proc level [email or web address] 01:43 PM HR=68 bpm, YLQO=018/78 mmhg, SpO2=96.0 %, Resp=21 B/min 01:46 PM Site status No bleeding/hematoma - Rt Groin as reported by Rina Barrett RT (R) at 13:46 [email or web address] 01:46 PM Opsite applied 01:46 PM manual pressure held for 14 mins, jan barrett rt(r) 01:47 PM Vitals capture stopped. 01:50 PM Patient out of room: 13:50 [email or web address] Complications Complication None None Hemodynamics Pressures Site Systolic/A Wave Diastolic/V Wave Mean AO 188 80 124 AO 154 73 107 AO 205 55 130 LV 187 10 17 LV 196 6 15 AO 210 44 126 Post Procedure Information Blood Pressure: 192/86 mmHg Rhythm: NSR Post procedural instructions were given Closure Device Time Device Success/Fail Manual Compression Successful Site Checks Time Location Status Staff Sheath In? Note 01:46 PM Rt Groin No bleeding/hematoma Rina Barrett RT (R) Pulses Time Site Pre-Procedure Post-Procedure Note 06/28/2017 12:57:00 PM Bilateral DP & PT 2+ 06/28/2017 12:57:00 PM Bilateral radial 2+ Updated by David Boss RT (R) on 06/28/2017 1:50:10 PM David Gera, RT electronically signed on 06/28/2017 1:50:34 PM with status of Final
--- NOTE | 2017-06-28 15:23 | Electrocardiograph Report ---
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
--- NOTE | 2017-06-28 16:03 | Discharge Summary ---
<Delonte Grant - Last Filed: 06/28/17 16:09> Date of Encounter: 06/28/17 Time of Encounter: 08:15 - Discharge Diagnosis (1) Atypical chest pain Priority: Primary Status: Acute (2) COPD with exacerbation Priority: Secondary Status: Acute (3) Hypothyroid Priority: Secondary Status: Acute Qualifiers: Hypothyroidism type: unspecified Qualified Code(s): E03.9 - Hypothyroidism , unspecified (4) GERD (gastroesophageal reflux disease) Priority: Secondary Status: Chronic Qualifiers: Esophagitis presence: esophagitis presence not specified Qualified Code(s) : K21.9 - Gastro-esophageal reflux disease without esophagitis (5) HTN (hypertension) Priority: Secondary Status: Chronic Comments: Will be sent home with Norvasc prescription. Qualifiers: Hypertension type: essential hypertension Qualified Code(s): I10 - Essential (primary) hypertension (6) HLD (hyperlipidemia) Priority: Secondary Status: Chronic Qualifiers: Hyperlipidemia type: unspecified Qualified Code(s): E78.5 - Hyperlipidemia , unspecified (7) DVT prophylaxis Priority: Secondary Status: Acute - Discharge Medications Prescriptions: amLODIPine [Norvasc] 5 mg PO DAILY #30 tablet Home Medications: Aspirin Enteric Coated [Aspirin EC] 81 mg PO DAILY 01/10/17 [History] Calcium Carbonate/Vitamin D3 [Calcium 600 + Vit D Tablet] 1 tab PO DAILY [History] Carvedilol [Coreg] 50 mg PO BID 01/10/17 [History] Levothyroxine Sodium 100 mcg PO QAM 01/10/17 [History] Losartan/HCTZ [Hyzaar 50-12.5 Tablet] 1 tab PO BID 01/10/17 [History] Simvastatin [Zocor] 20 mg PO HS 01/10/17 [History] Albuterol Sulfate [Ventolin Hfa] 2 puff IH Q4H PRN 02/17/17 [History] Sucralfate [Carafate] 1 gm PO TID #90 tab 02/19/17 [Rx] PredniSONE [Deltasone] 20 mg PO BID #10 tablet 06/20/17 [Rx] Esomeprazole Magnesium [Nexium] 40 mg PO DAILY 06/27/17 [History] Umeclidinium Brm/Vilanterol Tr [Anoro Ellipta 62.5-25 Mcg INH] 1 puff IH DAILY 12/10/17 [History] clonazePAM [Klonopin] 0.5 mg PO DAILY PRN 06/27/17 [History] amLODIPine [Norvasc] 5 mg PO DAILY #30 tablet 06/28/17 [Rx] Allergies/Adverse Reactions: 3 Allergy/AdvReac Type Severity Reaction Status Date / Time sulfamethoxazole Allergy See Verified 06/27/17 11:27 [From Bactrim] Comments trimethoprim [From Bactrim] Allergy See Verified 06/27/17 11:27 Comments Procedures/tests Complete & Pending: Procedures Performed prior 72 hours Category Date Time Status CL Cardiac Catheterization [CL] Routine Grease Monkey 06/28/17 11:16 Ordered EV limited echocardiogram Routine Y 06/28/17 10:22 Completed Date of admission: 06/27/17 14:52 Primary care physician: Ling Gomez CNP Consults: 06/27/17 17:02 Consult to Cardiology [CONS] Routine Comment: Consulting Provider: [facility] Reason for Consult: chest pain; acs r/o Time Notified: 17:00 Call Completed: Yes 06/27/17 18:30 Consult to Nutrition [CONS] Routine Comment: Consulting Provider: NUTRITION Reason for Dietary Consult: MST Score Discharging clinician: Delonte Grant Anticipated date of discharge: 06/28/17 - Patient Status Disposition: Home, Self-Care Condition: Fair Overall status at discharge: patient is progressing back to baseline - Discharge Instructions Instructions: Amlodipine (By mouth), Chest Pain (DC), Chronic Obstructive Pulmonary Disease (DC), Chronic Hypertension (DC) Follow Up With: Ling Gomez CNP [Primary Care Provider] - 06/29/17 3:40 pm (please follow up as schedule.....) - Diet and Activity Activity: increase activity as tolerated Diet: advance to your usual diet Hospital course: Patient is a 76-year-old female who presented to the hospital on 06/27/17. Presented with shortness of breath and a burning chest sensation for 2 weeks. Patient's chest pain woke her up in the morning, and she characterizes it as a burning sensation which radiated up to her throat. She described the sensation like a lump in her throat. Rated her pain 10 out of 10. She was seen one week prior to admission for COPD exacerbation. She has had recurrent episodes of shortness of breath for the last several months, and has had 3 admissions for COPD exacerbation in the last 6 months. She was sent home on steroids. Uses a CPAP machine at night. She also has a DuoNeb and steroid inhaler. Patient's condition improved with albuterol treatments. In the emergency department, CTA was obtained, negative for pulmonary embolism or any acute pulmonary abnormality. Mild emphysema was seen. First set of troponins were negative, but patient was noted to have T-wave inversions in leads V1 through V3. These changes were not on the previous EKG. Nuclear stress test on 02/2017 was negative for ischemia or infarct. Patient seen and examined this morning. Reported an improvement of her symptoms. She no longer has any chest pain or shortness of breath. Cardiology was consulted, who recommended Cardiac catheterization. Per cardiology report: Limited echo EF preserved. LHC nonobstructive disease. 40% distal LCx lesion. Continue ASA, Statin, BB. Cardiology recommends outpatient follow up and optimal blood pressure control. Patient will be sent home on [facility]. - Time Spent with Patient Total time spent providing and/or coordinating discharge services: - Constitutional Vitals: Temp Pulse Resp BP Pulse Ox 98.2 F 69 16 149/76 98 06/28/17 11:41 06/28/17 11:41 06/28/17 11:41 06/28/17 11:41 06/28/17 11:41 General appearance: Present: A&O X 3, no acute distress - Head Head exam: Present: atraumatic, normocephalic - Eye Eye exam: Present: PERRL, conjuntiva pink, sclera anicteric Pupils: Present: PERRL - Neck Neck exam general surgery: Present: supple, trachea midline. Absent: lymphadenopathy - Respiratory Respiratory exam: Present: CTAB. Absent: accessory muscle use, rales, rhonchi, wheezes - Cardiovascular Cardiovascular exam: Present: RRR, +S1, +S2. Absent: diastolic murmur, gallop, rubs, systolic murmur - GI/Abdominal GI/Abdominal exam: Absent: distended - Skin Skin exam: Present: dry, intact <Angelo Dobson - Last Filed: 06/28/17 20:06> Date of Encounter: 06/28/17 Procedures/tests Complete & Pending: Procedures Performed prior 72 hours Category Date Time Status CL Cardiac Catheterization [CL] Routine Grease Monkey 06/28/17 11:16 Ordered EV limited echocardiogram Routine Y 06/28/17 10:22 Completed Date of admission: 06/27/17 14:52 Primary care physician: Ling Gomez CNP Consults: 06/27/17 17:02 Consult to Cardiology [CONS] Routine Comment: Consulting Provider: [facility] Reason for Consult: chest pain; acs r/o Time Notified: 17:00 Call Completed: Yes 06/27/17 18:30 Consult to Nutrition [CONS] Routine Comment: Consulting Provider: NUTRITION Reason for Dietary Consult: MST Score Hospital course: Ms. Moilna is a 76 year old female - Time Spent with Patient Total time spent providing and/or coordinating discharge services: - Constitutional Vitals: Temp Pulse Resp BP Pulse Ox 98.2 F 69 16 149/76 98 06/28/17 11:41 06/28/17 11:41 06/28/17 11:41 06/28/17 11:41 06/28/17 11:41 - Attending Attestation I conducted a face to face diagnostic evaluation of this patient and my medical decision-making was reviewed with the Resident Physician, Dr. Delonte Grant. I agree with the documented findings, disposition and treatment plan as described except to the extent set forth below: We will start Norvasc 5 mg daily as home medication. To be increased by PCP and titrated to blood pressure goal.
== END 2017-06-28 19:10 | disposition home or self-care (01) ==
LOC: EMEROO 11:22 → 2ANU 11:22
PROVIDERS: ADMIT Hospitalist; ATTEND Internal Medicine

== ENCOUNTER 2018-04-10 10:16 | Observation (INO) ==
[2018-04-10] MEDS ORDERED: 0.9 % Sodium Chloride 500 ML IVC ONE (10:35)
[2018-04-10] MEDS ORDERED: Nitroglycerin 0.4 MG TAB.SUBL SL ONE (10:35)
[2018-04-10] MEDS ORDERED: Aspirin 81 MG TAB.CHEW PO ONE (10:35)
--- NOTE | 2018-04-10 10:39 | Emergency Department Note ---
Disposition Clinical Impression: Elevated blood pressure reading Chest pain Qualifiers: Chest pain type: unspecified Qualified Code(s): R07.9 - Chest pain, unspecified Disposition: Admitted As Inpatient Condition: Fair Referrals: Ling oGmez CNP [Primary Care Provider] - Forms: ED Satisfaction Letter Time of Disposition: 12:01 Chest Pain HPI - General Chief Complaint: ED Chest Pain Stated Complaint: chest pain Time Seen by Provider: 04/10/18 10:24 Source: patient Mode of arrival: ambulatory Limitations: no limitations Vital Signs Reviewed: Yes Nursing Notes Reviewed: Yes - History of Present Illness HPI Narrative: 77-year-old female persists for evaluation of chest pain. Patient does have a history of hypertension. Patient is a former smoker over 60 years but quit over the past year. Notes chest pain that started 5:00 this morning. Reports nausea but no vomiting. No diaphoresis. Notes be left-sided describes a pressure sensation. Radiates to her neck. No aggravating or alleviating factors. Patient thought that it was her acid reflux but at times but did not resolve. Patient denies history of heart attacks. Patient denies any aggravating or relieving factors. Denies any fevers or cough. Reports of shortness of breath related the pain. Patient's also been complaining of urinary urgency and increased frequency urination. Denies any dysuria. Severity scale (1-10): 5 - Related Data Home Medications Medication Instructions Recorded Confirmed Aspirin Enteric Coated [Aspirin EC] 81 mg PO DAILY 01/10/17 04/10/18 Calcium Carbonate/Vitamin D3 1 tab PO DAILY 01/10/17 04/10/18 [Calcium 600 + Vit D Tablet] Carvedilol [Coreg] 25 mg PO BID 01/10/17 04/10/18 Levothyroxine Sodium 100 mcg PO QAM 01/10/17 04/10/18 Simvastatin [Zocor] 20 mg PO HS 01/10/17 04/10/18 Esomeprazole Magnesium [Nexium] 40 mg PO DAILY 06/27/17 04/10/18 Umeclidinium Brm/Vilanterol Tr 1 puff IH DAILY 06/27/17 04/10/18 [Anoro Ellipta 62.5-25 Mcg INH] Citalopram Hydrobromide 10 mg PO DAILY 09/24/17 04/10/18 [Citalopram HBr] Losartan Potassium [Cozaar] 50 mg PO BID 09/24/17 04/10/18 hydroCHLOROthiazide 25 mg PO DAILY 09/24/17 04/10/18 [Hydrochlorothiazide] FLUoxetine HCl [PROzac] 20 mg PO DAILY 04/10/18 04/10/18 Allergies Allergy/AdvReac Type Severity Reaction Status Date / Time sulfamethoxazole Allergy See Verified 06/27/17 11:27 [From Bactrim] Comments trimethoprim [From Bactrim] Allergy See Verified 06/27/17 11:27 Comments All systems ED: reviewed and negative except as stated. Constitutional: Denies: fever Cardiovascular: Reports: chest pain Respiratory: Reports: dyspnea. Denies: cough, sputum production Gastrointestinal: Reports: nausea. Denies: abdominal pain, vomiting Chest Pain PMH - Past Medical History Medical history: Reports: COPD, GERD, hyperlipidemia, hypertension, thyroid disease Surgical history: Reports: cataract, cholecystectomy, herniorrhaphy, hip replacement, hysterectomy, thyroidectomy Psychiatric history: Reports: anxiety, depression - Social History Smoking Status: Former smoker Alcohol use: Reports: none Drug use: Reports: none Physical Exam - General Limitations: no limitations General appearance: alert, in no apparent distress - Head Head exam: atraumatic, normocephalic, normal inspection - Eye Eye exam: Present: normal appearance, PERRL, EOMI - ENT ENT exam: normal exam, mucous membranes moist - Neck Neck exam: Present: normal inspection - Chest Chest inspection: Present: normal inspection, symmetric chest wall rise - Respiratory Respiratory exam: Present: normal lung sounds bilaterally. Absent: respiratory distress - Cardiovascular Cardiovascular exam: Present: regular rate, normal rhythm. Absent: systolic murmur - Abdominal Exam Abdominal exam: Present: soft, Non-Tender - Extremities Exam Extremities exam: Present: normal inspection. Absent: pedal edema - Expanded Lower Extremity Exam Neurovascular/Tendon exam: Present: normal capillary refill - Back Exam Back exam: Present: normal inspection, full ROM. Absent: tenderness - Neurological Exam Neurological exam: Present: alert, oriented X3 - Skin Skin exam: Present: warm, dry, intact, normal color Course Course Narrative: Patient seen and examined. Patient appears to be resting comfortably. Complaining of chest pain started this morning different than her prior chest pain. Patient will get a cardiopulmonary evaluation EKG, chest x-ray troponin. Patient also get a urinalysis given her urinary complaints. Disposition likely admission. - Reevaluation(s) Reevaluation #1: Patient's records reviewed. Patient did have a cardiac catheterization almost a year ago which did not require any interventions. However the patient does have concerning signs symptoms consistent with unstable angina. Patient will be admitted to the hospital service for further evaluation and serial troponins. Time: 11:31 Reevaluation #2: Patient's chest pain resolved after one nitroglycerin. Will admit the patient the hospitalist. Time: 11:47 Vital Signs Temperature 97.7 F 04/10/18 10:21 Pulse Rate 66 04/10/18 10:21 Respiratory Rate 22 04/10/18 10:21 Blood Pressure 136/79 04/10/18 10:21 O2 Sat by Pulse Oximetry 99 04/10/18 10:21 Temperature 97.7 F 04/10/18 10:21 Pulse Rate 65 04/10/18 11:36 Respiratory Rate 18 04/10/18 11:36 Blood Pressure 146/72 04/10/18 11:37 O2 Sat by Pulse Oximetry 99 04/10/18 11:36 Oxygen Delivery Oxygen Delivery Room Air Chest Pain - MDM Narrative Medical decision making narrative: Patient presents for concerns of chest pain. Patient does have a history of acid reflux but this pain she describes is different than her acid reflux nonexertional pressure sensation left-sided chest. No nausea vomiting or diaphoresis. Patient had several hours of onset of pain prior to ED presentation. Patient does have risk factors for ACS. Patient's heart score is moderate risk. Patient received aspirin and relief of pain with 1 nitroglycerin. Patient's been resting comfortably since. Patient will be admitted to hospital service for further observation and and evaluation. Patient was not anticoagulated or heparinized in the ED as she has no change in EKG with a negative troponin. Symptoms are not consistent with PE or dissection. Patient was also complaining of some urinary symptoms and a UA was obtained. - Lab Data Lab results reviewed: Yes I reviewed the patient's lab results. Result diagrams: 04/10/18 11:02 04/10/18 11:02 Lab Results 04/10/18 04/10/18 04/10/18 Range/Units 11:02 11:02 11:02 WBC 7.0 (4.3-11.1) K/mcL RBC 4.09 (3.82-4.97) M/mcL Hgb 12.3 (11.5-15.4) g/dL Hct 36.3 (35.3-44.9) % MCV 88.8 (83.0-100.0) fL MCH 30.1 (28.0-33.3) pg MCHC 33.9 (31.6-35.5) g/dL RDW 12.3 (11.5-14.5) % Plt Count 146 (140-400) K/mcL MPV 10.8 (9.4-12.4) fL Immature Gran % 0.1 (0-4) % Seg Neutrophils % 71.7 % Lymphocytes % 17.5 % Monocytes % 7.9 % Eosinophils % 2.4 % Basophils % 0.4 % Neutrophils # 5.0 (1.6-8.9) K/mcL Lymphocytes # 1.2 (0.6-4.6) K/mcL Monocytes # 0.6 (0.0-1.3) K/mcL Eosinophils # 0.2 (0.0-0.6) K/mcL Basophils # 0.0 (0.0-0.2) K/mcL Immature Plt Fraction 6.0 (1.1-6.1) % PT 11.9 (9.4-12.1) Seconds INR 1.1 APTT 29.6 (26.0-36.0) Seconds Sodium (136-145) mEq/L Potassium (3.5-5.1) mEq/L Chloride (98-107) mEq/L Carbon Dioxide (23-29) mEq/L BUN (8-23) mg/dL Creatinine (0.60-1.20) mg/dL Est GFR ( Amer) (> 60) Est GFR (Non-Af Amer) (> 60) BUN/Creatinine Ratio (6-26) Glucose (70-105) mg/dL Calculated Osmolality (280-300) Calcium (8.6-10.3) mg/dL Troponin I (< 0.04) ng/mL B-Natriuretic Peptide 25 (Less than 100) pg/mL 04/10/18 Range/Units 11:02 WBC (4.3-11.1) K/mcL RBC (3.82-4.97) M/mcL Hgb (11.5-15.4) g/dL Hct (35.3-44.9) % MCV (83.0-100.0) fL MCH (28.0-33.3) pg MCHC (31.6-35.5) g/dL RDW (11.5-14.5) % Plt Count (140-400) K/mcL MPV (9.4-12.4) fL Immature Gran % (0-4) % Seg Neutrophils % % Lymphocytes % % Monocytes % % Eosinophils % % Basophils % % Neutrophils # (1.6-8.9) K/mcL Lymphocytes # (0.6-4.6) K/mcL Monocytes # (0.0-1.3) K/mcL Eosinophils # (0.0-0.6) K/mcL Basophils # (0.0-0.2) K/mcL Immature Plt Fraction (1.1-6.1) % PT (9.4-12.1) Seconds INR APTT (26.0-36.0) Seconds Sodium 138 (136-145) mEq/L Potassium 3.7 (3.5-5.1) mEq/L Chloride 104 (98-107) mEq/L Carbon Dioxide 25 (23-29) mEq/L BUN 17 (8-23) mg/dL Creatinine 1.08 (0.60-1.20) mg/dL Est GFR ( Amer) 59 L (> 60) Est GFR (Non-Af Amer) 49 L (> 60) BUN/Creatinine Ratio 16 (6-26) Glucose 120 H (70-105) mg/dL Calculated Osmolality 289 (280-300) Calcium 9.2 (8.6-10.3) mg/dL Troponin I < 0.03 (< 0.04) ng/mL B-Natriuretic Peptide (Less than 100) pg/mL - Radiology Data Radiology results reviewed: Yes I reviewed the patient's radiology results. Chest X-Ray 04/10/18 10:35 IMPRESSION: No significant findings in the chest. D/ / Zeb Beltran MD / Zeb Beltran MD Interpreting Provider: Zeb Beltran MD - EKG Data EKG attestation: Yes I reviewed and interpreted this EKG. EKG shows normal: sinus rhythm Rate: normal Rhythm: NSR [place]/QRS: normal T wave inversions noted in: v1 Interpretation: no acute changes Heart Score - Score History: Moderately Suspicious EKG: Non Specific repolarisation Disturbance Age: Greater than 65 Risk Factors: 1-2 risk factors Troponin: Less than normal limit HEART Score Total: 5 S.B.ARosa - Radha Situation: Demographics Background: Presenting Complaint Assessment: Vital Signs, Course and respsone to treatment, Patient/Family Expectation Recommendation: Barrier(s) to disposition, Recommendation based on pending studies, treatments, or consults S.B.A.Milvia Report Given to: Dr. Umesh Garcia Repor Time: 11:59
[2018-04-10 11:10] LABS: Basophils % 0.4 %; Eosinophils # 0.2 K/mcL (0.0-0.6); Eosinophils % 2.4 %; Hematocrit 36.3 % (35.3-44.9); Hemoglobin 12.3 g/dL (11.5-15.4); Immature Granulocytes % 0.1 % (0-4); Lymphocytes # 1.2 K/mcL (0.6-4.6); Lymphocytes % 17.5 %; Mean Corpuscular HGB Conc 33.9 g/dL (31.6-35.5); Mean Corpuscular Hemoglobin 30.1 pg (28.0-33.3); Mean Corpuscular Volume 88.8 fL (83.0-100.0); Mean Platelet Volume 10.8 fL (9.4-12.4); Monocytes # 0.6 K/mcL (0.0-1.3); Monocytes % 7.9 %; Platelet Count 146 K/mcL (140-400); Red Blood Count 4.09 M/mcL (3.82-4.97); Red Cell Distribution Width 12.3 % (11.5-14.5); Segmented Neutrophils % 71.7 %
[2018-04-10 11:14] LABS: INR 1.1; Prothrombin Time 11.9 Seconds (9.4-12.1)
[2018-04-10 11:16] LABS: Activated Partial Thrombo Time 29.6 Seconds (26.0-36.0)
--- NOTE | 2018-04-10 11:30 | Emergency Department Note ---
Disposition Clinical Impression: Chest pain Qualifiers: Chest pain type: unspecified Qualified Code(s): R07.9 - Chest pain, unspecified Disposition: Admitted As Inpatient Referrals: Ling Gomez CNP [Primary Care Provider] - Forms: ED Satisfaction Letter General Adult HPI - General Chief complaint: ED Chest Pain Stated complaint: chest pain Time Seen by Provider: 04/10/18 10:24 Source: patient Mode of arrival: ambulatory Limitations: no limitations - History of Present Illness Pain Scale: 5 - Related Data Home Medications Medication Instructions Recorded Confirmed Aspirin Enteric Coated [Aspirin EC] 81 mg PO DAILY 01/10/17 04/10/18 Calcium Carbonate/Vitamin D3 1 tab PO DAILY 01/10/17 04/10/18 [Calcium 600 + Vit D Tablet] Carvedilol [Coreg] 25 mg PO BID 01/10/17 04/10/18 Levothyroxine Sodium 100 mcg PO QAM 01/10/17 04/10/18 Simvastatin [Zocor] 20 mg PO HS 01/10/17 04/10/18 Esomeprazole Magnesium [Nexium] 40 mg PO DAILY 06/27/17 04/10/18 Umeclidinium Brm/Vilanterol Tr 1 puff IH DAILY 06/27/17 04/10/18 [Anoro Ellipta 62.5-25 Mcg INH] Citalopram Hydrobromide 10 mg PO DAILY 09/24/17 04/10/18 [Citalopram HBr] Losartan Potassium [Cozaar] 50 mg PO BID 09/24/17 04/10/18 hydroCHLOROthiazide 25 mg PO DAILY 09/24/17 04/10/18 [Hydrochlorothiazide] FLUoxetine HCl [PROzac] 20 mg PO DAILY 04/10/18 04/10/18 Allergies Allergy/AdvReac Type Severity Reaction Status Date / Time sulfamethoxazole Allergy See Verified 06/27/17 11:27 [From Bactrim] Comments trimethoprim [From Bactrim] Allergy See Verified 06/27/17 11:27 Comments Constitutional: Denies: fever Cardiovascular: Reports: chest pain Respiratory: Reports: dyspnea. Denies: cough, sputum production Gastrointestinal: Reports: nausea. Denies: abdominal pain, vomiting Past Medical History - Past Medical History Medical history: Reports: COPD, GERD, hyperlipidemia, hypertension, thyroid disease Surgical history: Reports: cataract, cholecystectomy, herniorrhaphy, hip replacement, hysterectomy, thyroidectomy Psychiatric history: Reports: anxiety, depression - Social History Smoking Status: Former smoker Smokeless Tobacco Status: No Alcohol use: Reports: none Drug use: Reports: none Physical Exam - General Limitations: no limitations General appearance: alert, in no apparent distress Course Vital Signs Temperature 97.7 F 04/10/18 10:21 Pulse Rate 66 04/10/18 10:21 Respiratory Rate 22 04/10/18 10:21 Blood Pressure 136/79 04/10/18 10:21 O2 Sat by Pulse Oximetry 99 04/10/18 10:21 Temperature 97.7 F 04/10/18 10:21 Pulse Rate 66 04/10/18 10:21 Respiratory Rate 22 04/10/18 10:21 Blood Pressure 136/79 04/10/18 10:21 O2 Sat by Pulse Oximetry 99 04/10/18 10:21 Oxygen Delivery Oxygen Delivery Room Air Medical Decision Making - Lab Data Result diagrams: 04/10/18 11:02 Lab Results 04/10/18 04/10/18 Range/Units 11:02 11:02 WBC 7.0 (4.3-11.1) K/mcL RBC 4.09 (3.82-4.97) M/mcL Hgb 12.3 (11.5-15.4) g/dL Hct 36.3 (35.3-44.9) % MCV 88.8 (83.0-100.0) fL MCH 30.1 (28.0-33.3) pg MCHC 33.9 (31.6-35.5) g/dL RDW 12.3 (11.5-14.5) % Plt Count 146 (140-400) K/mcL MPV 10.8 (9.4-12.4) fL Immature Gran % 0.1 (0-4) % Seg Neutrophils % 71.7 % Lymphocytes % 17.5 % Monocytes % 7.9 % Eosinophils % 2.4 % Basophils % 0.4 % Neutrophils # 5.0 (1.6-8.9) K/mcL Lymphocytes # 1.2 (0.6-4.6) K/mcL Monocytes # 0.6 (0.0-1.3) K/mcL Eosinophils # 0.2 (0.0-0.6) K/mcL Basophils # 0.0 (0.0-0.2) K/mcL Immature Plt Fraction 6.0 (1.1-6.1) % PT 11.9 (9.4-12.1) Seconds INR 1.1 APTT 29.6 (26.0-36.0) Seconds Attestation Statement - Attestation Attestation: I examined this patient and my medical decision-making was reviewed with the Resident Physician. I agree with the documented findings, disposition and treatment plan as described except to the extent set forth below. 77 year old female presents to the ED with complaints of chest pain x 1 year and has mutliple risk factors for ACS and stopped smoking 1 year ago. Ashly follows with a guide rail cleaner in [place] and is scheduled for a pulmonary MRI in [facility]. Ashly states that she has exertional dyspnea but is not hypoxic. We will admit for chest pain r/o ACS
[2018-04-10 11:39] LABS: BUN/Creatinine Ratio 16 (6-26); Blood Urea Nitrogen 17 mg/dL (8-23); Calcium 9.2 mg/dL (8.6-10.3); Carbon Dioxide 25 mEq/L (23-29); Chloride 104 mEq/L (98-107); Glucose 120 mg/dL (70-105); Osmolality,Calculated 289 (280-300); Potassium 3.7 mEq/L (3.5-5.1); Sodium 138 mEq/L (136-145); Troponin I < 0.03 ng/mL (< 0.04); eGFR For Non-African Americans 49 (> 60)
[2018-04-10 11:57] LABS: Bilirubin,Urine Negative (Negative); Blood,Urine Negative (Negative); Clarity,Urine Clear (Clear); Color,Urine Yellow (Yellow); Glucose,Urine (UA) Normal (Normal); Ketones,Urine Negative (Negative); Leukocyte Esterase,Urine Moderate (Negative); Nitrite,Urine Negative (Negative); Protein,Urine Negative (Neg-Trace); Specific Gravity,Urine < 1.005 (1.010-1.025); Urobilinogen,Urine Normal (Normal)
[2018-04-10 12:00] LABS: Bacteria,Urine None Seen per hpf (None-Few); Hyaline Casts,Urine None Seen per lpf (None-Few); Squamous Epithelial Cell,Urine Moderate per lpf (None-Few)
[2018-04-10] MEDS ORDERED: Naloxone 0.4 MG/ML INJ IVP PRN (14:27)
--- NOTE | 2018-04-10 14:44 | Internal Med History&Physical ---
Date of Encounter: 04/10/18 Time of Encounter: 12:45 Internal Medicine - H&P: HPI Chief complaint: Chest pain Admitted From: Home Plans for Post Hospital Care: Home History of present illness: Ms. Molina is a 77 year old female with past medical history significant for hypertension, hyperlipidemia, acid reflux, depression, and hypothyroidism who presents for complaints of constant left sided 5/10 pressure like chest pain that started this morning radiating to the center of her chest and neck. Associated with nausea and shortness of breath. No vomiting, diaphoresis, or abdominal pain. Has history of acid reflux so she states she took her nexium with no improvement. Received nitro and aspirin in ER which has since completely resolved her symptoms. Also complains of urinary frequency and urgency without other urinary symptoms, but states this has been an ongoing issue for about a year. Was seen and evaluated for chest pain in June 2017 with echo (EF 60%) and heart catheterization which she reports no stents or abnormal findings. Follows with pulmonary for intermittent shortness of breath and was told she did not have COPD after pulmonary function test but is scheduled to have a chest MRI and follow up in May. Also follows with [place] [facility] annually and is scheduled to see them next 04/21/2018. Past Med Surg Social Fam HX - Past Medical History Medical history: COPD, GERD, hyperlipidemia, hypertension, thyroid disease Psychiatric history: anxiety, depression - Past Surgical History Surgical History: cataract, cholecystectomy, herniorrhaphy, hip replacement, hysterectomy, thyroidectomy - Social History Smoking Status: Former smoker Smokeless Tobacco Status: No Alcohol use: none Drug use: none - Family History Father Family Member Ethnicity: Non- Living Status: Hx Family Cardiac Disorders: Yes Mother Family Member Ethnicity: Non- Living Status: Hx Family Endocrine Disorder: Yes Brother Family Member Ethnicity: Non- Living Status: Hx Family Cancer: Yes Sister Family Member Ethnicity: Non- Living Status: Still Living Hx Family Endocrine Disorder: Yes Internal Medicine - H&P: Meds Aspirin Enteric Coated [Aspirin EC] 81 mg PO DAILY 01/10/17 [History] Calcium Carbonate/Vitamin D3 [Calcium 600 + Vit D Tablet] 1 tab PO DAILY [History] Carvedilol [Coreg] 25 mg PO BID 01/10/17 [History] Levothyroxine Sodium 100 mcg PO QAM 01/10/17 [History] Simvastatin [Zocor] 20 mg PO HS 01/10/17 [History] Esomeprazole Magnesium [Nexium] 40 mg PO DAILY 06/27/17 [History] Umeclidinium Brm/Vilanterol Tr [Anoro Ellipta 62.5-25 Mcg INH] 1 puff IH DAILY 06/27/17 [History] Citalopram Hydrobromide [Citalopram HBr] 10 mg PO DAILY 09/24/17 [History] Losartan Potassium [Cozaar] 50 mg PO BID 09/24/17 [History] hydroCHLOROthiazide [Hydrochlorothiazide] 25 mg PO DAILY 09/24/17 [History] FLUoxetine HCl [PROzac] 20 mg PO DAILY 04/10/18 [History] 3 Allergy/AdvReac Type Severity Reaction Status Date / Time sulfamethoxazole Allergy See Verified 06/27/17 11:27 [From Bactrim] Comments trimethoprim [From Bactrim] Allergy See Verified 06/27/17 11:27 Comments All Systems PM: A 10-system review of systems was performed and is negative for pertinent findings except as documented above in the HPI. - Constitutional Vitals: Temp Pulse Resp BP Pulse Ox 97.7 F 65 18 146/72 99 04/10/18 10:21 04/10/18 11:36 04/10/18 11:36 04/10/18 11:37 04/10/18 11:36 Exam: General: Alert and oriented. Skin:Normal color, no rash, no lesions. HEENT:EOM, pupils equal, round and reactive. Cardiovascular:Heart sounds distant. Normal S1 & S2, no rubs, murmurs or gallops. No JVD. Pulse regular. Lungs:Breath sounds decreased, no wheezes or crackles. Abdomen:Soft, non-tender, no rigidity. Extremities:No deformity, no edema or tenderness, no joint swelling or clubbing. Neurological:Normal cognition and motor skills. Pulses:Carotid and radial pulses normal +2. Rest of the physical exam is non contributory. 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 Initial troponin in ER negative, serial troponins ordered. Cardiac diet. NPO at midnight. Stress test in a.m. Qualifiers: Chest pain type: unspecified Qualified Code(s): R07.9 - Chest pain, unspecified (2) UTI (urinary tract infection) Current Visit: Yes Status: Suspected Assessment and plan: UA obtained in ER likely contaminated, repeat UA ordered. Qualifiers: Urinary tract infection type: site unspecified Hematuria presence: without hematuria Qualified Code(s): N39.0 - Urinary tract infection, site not specified (3) Hypertension Current Visit: Yes Status: Chronic Assessment and plan: Continue home medications. Qualifiers: Hypertension type: essential hypertension Qualified Code(s): I10 - Essential (primary) hypertension - Time Spent With Patient Total time spent is greater than 50% in coordination of care (as documented) at patient's floor/unit and/or counseling patient:
[2018-04-10] MEDS: *HR* Heparin 5,000 UNIT/ML VIAL SQ SCH (18:22)
[2018-04-11] MEDS: *HR* Heparin 5,000 UNIT/ML VIAL SQ SCH (05:53)
[2018-04-11] MEDS ORDERED: Regadenoson 0.4 MG/5 ML SYRINGE IVP ONE (06:26)
[2018-04-11 07:16] LABS: Basophils % 0.4 %; Eosinophils # 0.2 K/mcL (0.0-0.6); Hematocrit 37.1 % (35.3-44.9); Hemoglobin 12.3 g/dL (11.5-15.4); Immature Granulocytes % 0.2 % (0-4); Lymphocytes # 1.4 K/mcL (0.6-4.6); Mean Corpuscular HGB Conc 33.2 g/dL (31.6-35.5); Mean Corpuscular Hemoglobin 30.1 pg (28.0-33.3); Mean Corpuscular Volume 90.7 fL (83.0-100.0); Mean Platelet Volume 11.3 fL (9.4-12.4); Monocytes # 0.5 K/mcL (0.0-1.3); Monocytes % 10.1 %; Neutrophils # 2.9 K/mcL (1.6-8.9); Platelet Count 144 K/mcL (140-400); Red Blood Count 4.09 M/mcL (3.82-4.97); Red Cell Distribution Width 12.4 % (11.5-14.5); Segmented Neutrophils % 57.3 %
[2018-04-11 07:37] LABS: Potassium 3.5 mEq/L (3.5-5.1)
[2018-04-11] MEDS ORDERED: Aspirin Enteric Coated 81 MG Tablet PO SCH (09:00)
[2018-04-11] MEDS ORDERED: Cholecalciferol (D-3) 1,000 UNIT TABLET PO SCH (09:00)
[2018-04-11] MEDS ORDERED: FLUoxetine 20 MG CAPSULE PO SCH (09:00)
[2018-04-11] MEDS ORDERED: Umeclidinium Brm/Vilanterol Tr [Anoro Ellipta 62.5-2 IH SCH (09:00)
[2018-04-11] MEDS ORDERED: hydroCHLOROthiazide 25 MG TABLET PO SCH (09:00)
--- NOTE | 2018-04-11 10:58 | Discharge Summary ---
- NOTES TO OUTPATIENT PROVIDER Notes to Outpatient Provider: Patient was admitted for chest pain and underwent stress test which came back negative. ?Esophageal spasm. Advised to give a trial of SL nitro and see if it improves her symptoms. She was also given a script for PRN ventolin for COPD in addition to Anoro which she is taking. She is advised to return to the ED if chest pain recurs or develops shortness of breath, palpitation, lightheadedness, nausea vomiting, or diaphoresis. She has an existing cardiology appt on 04/21. Orders not resulted at time of discharge: Pending orders 04/11/18 06:00 NM ana perf SPECT multi [NM] Routine 04/11/18 07:36 Urinalysis Reflex Cult & Micro [URIN] Stat Date of Encounter: 04/11/18 Time of Encounter: 09:10 - Discharge Diagnosis (1) Chest pain Priority: Primary Status: Acute Qualifiers: Chest pain type: unspecified Qualified Code(s): R07.9 - Chest pain, unspecified (2) UTI (urinary tract infection) Priority: Secondary Status: Suspected Qualifiers: Urinary tract infection type: site unspecified Hematuria presence: without hematuria Qualified Code(s): N39.0 - Urinary tract infection, site not specified (3) Hypertension Priority: Secondary Status: Chronic Qualifiers: Hypertension type: essential hypertension Qualified Code(s): I10 - Essential (primary) hypertension Hospital course: Ms. Molina is a 77 year old female with past history of nonobstructive CAD, hypertension, hyperlipidemia, GERD, was admitted for atypical chest pain. Underwent stress test on 04/11 which came back negative. Previous EGD report from 09/2017 was noted and she had dilation of entire esophagus ?Esophageal spasm. Advised to give a trial of SL nitro and see if it improves her symptoms. She was also given a script for PRN ventolin for COPD in addition to Anoro which she is taking. She is advised to return to the ED if chest pain recurs or develops shortness of breath, palpitation, lightheadedness, nausea vomiting, or diaphoresis. She has an existing cardiology appt on 04/21. - Time Spent with Patient Total time spent providing and/or coordinating discharge services: - Discharge Medications Prescriptions: Nitroglycerin [Nitrostat] 0.4 mg SL Q5MIN PRN #30 tab.subl PRN Reason: Chest Pain Albuterol Sulfate [Ventolin Hfa] 8 gm IH Q4H PRN #1 hfa.aer.ad PRN Reason: Shortness Of Breath/Wheezing Home Medications: Aspirin Enteric Coated [Aspirin EC] 81 mg PO DAILY 01/10/17 [History] Calcium Carbonate/Vitamin D3 [Calcium 600 + Vit D Tablet] 1 tab PO DAILY [History] Carvedilol [Coreg] 25 mg PO BID 01/10/17 [History] Levothyroxine Sodium 100 mcg PO QAM 01/10/17 [History] Simvastatin [Zocor] 20 mg PO HS 01/10/17 [History] Esomeprazole Magnesium [Nexium] 40 mg PO DAILY 06/27/17 [History] Umeclidinium Brm/Vilanterol Tr [Anoro Ellipta 62.5-25 Mcg INH] 1 puff IH DAILY 06/27/17 [History] Citalopram Hydrobromide [Citalopram HBr] 10 mg PO DAILY 09/24/17 [History] Losartan Potassium [Cozaar] 50 mg PO BID 09/24/17 [History] hydroCHLOROthiazide [Hydrochlorothiazide] 25 mg PO DAILY 09/24/17 [History] FLUoxetine HCl [Prozac] 20 mg PO DAILY 04/10/18 [History] Albuterol Sulfate [Ventolin Hfa] 8 gm IH Q4H PRN #1 hfa.aer.ad 04/11/18 [Rx] Nitroglycerin [Nitrostat] 0.4 mg SL Q5MIN PRN #30 tab.subl 04/11/18 [Rx] Allergies/Adverse Reactions: 3 Allergy/AdvReac Type Severity Reaction Status Date / Time sulfamethoxazole Allergy See Verified 06/27/17 11:27 [From Bactrim] Comments trimethoprim [From Bactrim] Allergy See Verified 06/27/17 11:27 Comments Date of admission: 04/10/18 14:09 Primary care physician: Ling Gomez CNP - Constitutional Vitals: Temp Pulse Resp BP Pulse Ox 97.9 F 69 15 155/78 96 04/11/18 06:37 04/11/18 06:37 04/11/18 06:37 04/11/18 06:37 04/11/18 06:37 Exam: General: Alert and oriented, not in acute distress. Cardiovascular:Normal S1 & S2, No JVD. Pulse regular. Lungs: clear to auscultation, no wheezes/rales Abdomen:Soft, non-tender, no rigidity. Extremities:No deformity or swelling Neurological:Normal cognition and motor skills. Non-focal - Patient Status Disposition: Home, Self-Care Condition: Fair - Discharge Instructions Instructions: Chest Pain (DC), Chronic Hypertension (DC), Chronic Obstructive Pulmonary Disease (DC) Follow Up With: Ling Gomez BEAMING MACHINE OPERATOR [Primary Care Provider] - - Diet and Activity Activity: resume usual activities as tolerated Diet: low salt diet
[2018-04-11 11:03] VITALS: BP 114/66
[2018-04-11 11:32] LABS: Bilirubin,Urine Negative (Negative); Blood,Urine Negative (Negative); Clarity,Urine Clear (Clear); Color,Urine Yellow (Yellow); Glucose,Urine (UA) Normal (Normal); Ketones,Urine Negative (Negative); Leukocyte Esterase,Urine Trace (Negative); Nitrite,Urine Negative (Negative); PH,Urine 6.5 pH Units (5.0-8.0); Protein,Urine 30 mg/dL (Neg-Trace); Specific Gravity,Urine 1.009 (1.010-1.025); Urobilinogen,Urine Normal (Normal)
[2018-04-11 11:35] LABS: Bacteria,Urine None Seen per hpf (None-Few); Hyaline Casts,Urine None Seen per lpf (None-Few); Squamous Epithelial Cell,Urine Many per lpf (None-Few); WBC,Urine 0-3 per hpf (0-3)
--- NOTE | 2018-04-11 17:20 | Electrocardiograph Report ---
[address] [address] Test Date: 2018-04-10 Pat Name: Jacy Molina Department: [id number] Room: 3B46 Gender: F Strategic Advisor: : 1940 Requested By: El Walker Order Number: [id number] Reading MD: Trina Borrego Measurements Intervals [place] Rate: 64 P: 43 LA: 185 QRS: 32 QRSD: 106 T: 57 QT: 442 QTc: 456 Interpretive Statements Sinus rhythm Low voltage, precordial leads Borderline T abnormalities, anterior leads Electronically Signed On 04-11-2018 17:18:18 EDT by Trina Borrego
== END 2018-04-11 13:13 | disposition home or self-care (01) ==
LOC: 3BNU 10:16 → EMEROOARM 10:16 → SUATTDRO 14:09 → 3BNU 16:21
PROVIDERS: ADMIT Internal Medicine; ATTEND Internal Medicine

== ENCOUNTER 2022-05-13 07:37 | Observation (INO) ==
[2022-05-13 08:46] LABS: Basophils % 0.4 %; Eosinophils # 0.2 K/mcL (0.0-0.6); Eosinophils % 3.1 %; Hematocrit 39.6 % (35.3-44.9); Immature Granulocytes % 0.1 % (0-4); Lymphocytes # 1.2 K/mcL (0.6-4.6); Mean Corpuscular HGB Conc 32.8 g/dL (31.6-35.5); Mean Corpuscular Hemoglobin 29.6 pg (28.0-33.3); Mean Corpuscular Volume 90.2 fL (83.0-100.0); Mean Platelet Volume 10.2 fL (9.4-12.4); Monocytes # 0.6 K/mcL (0.0-1.3); Monocytes % 7.8 %; Platelet Count 157 K/mcL (140-400); Red Blood Count 4.39 M/mcL (3.82-4.97); Red Cell Distribution Width 12.4 % (11.5-14.5); Segmented Neutrophils % 71.6 %
[2022-05-13 09:02] LABS: Alanine Aminotransferase 14 Units/L (7-52); Albumin 3.8 g/dL (3.5-5.7); Albumin/Globulin Ratio 1.2 (1.1-2.2); Alkaline Phosphatase 114 Units/L (34-104); Aspartate Amino Transferase 17 Units/L (13-39); BUN/Creatinine Ratio 15 (6-26); Bilirubin,Direct 0.1 mg/dL (0.0-0.2); Bilirubin,Indirect 0.4 mg/dL (0.0-1.0); Bilirubin,Total 0.5 mg/dL (0.3-1.0); Blood Urea Nitrogen 17 mg/dL (8-23); Carbon Dioxide 27 mEq/L (23-29); Chloride 104 mEq/L (98-107); Globulin 3.2 g/dL (2.4-3.5); Glucose 110 mg/dL (70-105); Lipase 18 Units/L (11-82); Osmolality,Calculated 286 (280-300); Potassium 4.2 mEq/L (3.5-5.1); Sodium 137 mEq/L (136-145); Troponin I < 0.03 ng/mL (< 0.04)
[2022-05-13] MEDS ORDERED: GI Cocktail 40 ML EACH PO ONE (09:15)
[2022-05-13 10:19] LABS: Influenza A PCR Negative (Negative); Influenza B PCR Negative (Negative); Resp. Syncytial Virus PCR Negative (Negative)
[2022-05-13 10:47] LABS: SARS-CoV-2 by PCR (In House) Positive (Negative)
[2022-05-13] MEDS ORDERED: Naloxone 0.4 MG/ML INJ IVP PRN (11:57)
[2022-05-13] MEDS ORDERED: Acetaminophen 325 MG TABLET PO PRN (11:57)
[2022-05-13] MEDS: carvediloL 25 MG TABLET PO SCH ×2 (13:58→17:51)
[2022-05-13] MEDS ORDERED: carvediloL 25 MG TABLET PO SCH (17:00)
[2022-05-13] MEDS: *HR* Heparin 5,000 UNIT/ML VIAL SQ SCH (18:50)
[2022-05-14] MEDS: *HR* Heparin 5,000 UNIT/ML VIAL SQ SCH (07:40)
[2022-05-14] MEDS ORDERED: Aspirin Enteric Coated 81 MG Tablet PO SCH (09:00)
[2022-05-14] MEDS ORDERED: FLUoxetine 20 MG CAPSULE PO SCH (09:00)
[2022-05-14 10:19] VITALS: BP 152/79; PULSE 77; TEMP 97.8; O2SAT 97
[2022-05-14] MEDS: carvediloL 25 MG TABLET PO SCH (10:20)
[2022-05-14 14:23] LABS: Calcium 9.4 mg/dL (8.6-10.3)
[2022-05-14 15:28] LABS: Basophils % 0.1 %; Hematocrit 37.7 % (35.3-44.9); Hemoglobin 12.2 g/dL (11.5-15.4); Immature Granulocytes % 0.5 % (0-4); Lymphocytes # 0.8 K/mcL (0.6-4.6); Lymphocytes % 7.9 %; Mean Corpuscular HGB Conc 32.4 g/dL (31.6-35.5); Mean Corpuscular Hemoglobin 29.4 pg (28.0-33.3); Mean Corpuscular Volume 90.8 fL (83.0-100.0); Monocytes # 0.6 K/mcL (0.0-1.3); Monocytes % 5.7 %; Neutrophils # 8.6 K/mcL (1.6-8.9); Platelet Count 172 K/mcL (140-400); Red Blood Count 4.15 M/mcL (3.82-4.97); Red Cell Distribution Width 12.4 % (11.5-14.5); Segmented Neutrophils % 85.8 %
== END 2022-05-14 14:34 | disposition home or self-care (01) ==
LOC: EMEROOARM 07:37 → 3ANU 07:37 → 1ANU 07:37 → 3ANU 12:48
PROVIDERS: ADMIT Internal Medicine; ATTEND Internal Medicine